=== PATIENT | female | born 1975 | race American Indian/Alaskan Native ===

== ENCOUNTER 2017-08-12 19:23 | Inpatient (IN) | payer OTHER ==
[2017-08-12 19:45] VITALS: BMI 38.0
--- NOTE | 2017-08-12 20:21 | ED PDOC ---
Arrival/HPI <Abilio Saunders - Last Filed: 08/12/17 21:53> - General Historian: Patient - History of Present Illness Time/Duration: Other (about 3 years) Symptom Onset: Gradual Symptom Course: Intermittent <Gerardo Steven - Last Filed: 08/12/17 22:55> - General Chief Complaint: Dizziness/Lightheaded Time Seen by Provider: 08/12/17 19:45 - History of Present Illness Narrative History of Present Illness (Text): 08/12/17 20:17 This is a 42 year old female with PMHx anemia and SVT complaining of paresthesias in both hands. Patient states that this has been occurring for the past 3 years. Patient has been unable to seek medical evaluation due to the care of her autistic son. 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 Patient admits to neck pain. Patient also complaining of lightheadedness and fatigue. Of note, patient's LMP was a few days prior. (Gerardo Steven) Past Medical History - Provider Review Nursing Documentation Reviewed: Yes - Infectious Disease Hx of Infectious Diseases: None - Tetanus Immunization Tetanus Immunization: Unknown - Cardiac Hx Cardiac Disorders: Yes Hx Cardiac Arrhythmia: Yes (SVT) - Pulmonary Hx Respiratory Disorders: No - Neurological Hx Neurological Disorder: No - HEENT Hx HEENT Disorder: No - Renal Hx Renal Disorder: No - Endocrine/Metabolic Hx Endocrine Disorders: No - Hematological/Oncological Hx Blood Disorders: Yes Hx Anemia: Yes - Integumentary Hx Dermatological Disorder: No - Musculoskeletal/Rheumatological Hx Musculoskeletal Disorders: No - Gastrointestinal Hx Gastrointestinal Disorders: No - Genitourinary/Gynecological Hx Genitourinary Disorders: No - Psychiatric Hx Psychophysiologic Disorder: No Hx Substance Use: No - Surgical History Hx Hysterectomy: (piece of uterus, right fallopian tube) Other/Comment: breast reduction - Anesthesia Hx Anesthesia: Yes Hx Anesthesia Reactions: No Hx Malignant Hyperthermia: No - Suicidal Assessment Feels Threatened In Home Enviroment: No <Gerardo Steven - Last Filed: 08/12/17 22:55> Family/Social History - Physician Review Nursing Documentation Reviewed: Yes Family/Social History: No Known Family HX Smoking Status: Light Smoker < 10 Cigarettes Daily Hx Alcohol Use: Yes Hx Substance Use: No Hx Substance Use Treatment: No <Gerardo Steven - Last Filed: 08/12/17 22:55> Allergies/Home Meds <LeylaAbilio eaton - Last Filed: 08/12/17 21:53> <Gerardo Steven - Last Filed: 08/12/17 22:55> Allergies/Adverse Reactions: Allergies No Known Allergies Allergy (Verified 08/12/17 19:46) Home Medications: Home Meds Medication Instructions Recorded Confirmed Folic Acid [Folic Acid] 1 tab PO DAILY 08/12/17 08/12/17 Review of Systems - Review of Systems Constitutional: Fatigue Eyes: Normal ENT: Normal Respiratory: Normal Cardiovascular: Normal Gastrointestinal: Normal Genitourinary Female: Frequency Musculoskeletal: Neck Pain Skin: Normal Neurological: Other (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 paresthesias along both hands. Lightheadedness.) Endocrine: Normal Hemo/Lymphatic: Normal Psychiatric: Normal <Gerardo Steven - Last Filed: 08/12/17 22:55> Physical Exam Vital Signs Reviewed: Yes Temperature: Afebrile Blood Pressure: Normal Pulse: Tachycardic Respiratory Rate: Normal Appearance: Positive for: Well-Appearing Pain Distress: None Mental Status: Positive for: Alert and Oriented X 3 - Systems Exam Head: Present: Atraumatic, Normocephalic Pupils: Present: PERRL Extroacular Muscles: Present: EOMI Conjunctiva: Present: Normal Mouth: Present: Moist Mucous Membranes Neck: Present: Normal Range of Motion Respiratory/Chest: Present: Clear to Auscultation, Good Air Exchange. No: Accessory Muscle Use Cardiovascular: Present: Regular Rate and Rhythm, Normal S1, S2 Abdomen: Present: Normal Bowel Sounds. No: Tenderness, Distention Upper Extremity: Present: Normal Inspection, NORMAL PULSES. No: Edema Lower Extremity: Present: Normal Inspection, NORMAL PULSES. No: Edema, CALF TENDERNESS Neurological: Present: GCS=15, CN II-XII Intact, Motor Func Grossly Intact, Other (increased sensation along right upper extremity compared to left.) Skin: Present: Warm, Dry, Normal Color. No: Rashes Psychiatric: Present: Alert, Oriented x 3 <Gerardo Steven - Last Filed: 08/12/17 22:55> Vital Signs Temp Pulse Resp BP Pulse Ox 08/12/17 22:43 84 16 126/80 100 08/12/17 20:59 86 18 118/79 100 08/12/17 19:49 98.4 F 99 H 18 120/84 100 Medical Decision Making - Lab Interpretations I have reviewed the lab results: Yes - EKG Interpretation Interpreted by ED Physician: Yes Type: 12 lead EKG <Abilio Saunders - Last Filed: 08/12/17 21:53> <Gerardo Steven - Last Filed: 08/12/17 22:55> ED Course and Treatment: Impression: Pt seen and evaluated with medical technicians. Pt, whose past medical history includes anemia and SVT, presented for bilateral hand paresthesias for the past 3 years. Also complaining of neck pain, light-headedness, and fatigue. Aware and agrees with HPI, clinical findings, plan, and management. Plan: -- Labs, blood type and screen -- EKG -- Urinalysis, urine cultures -- Reassess and disposition (Abilio Saunders) 08/12/17 20:29 CBC, CMP, Urine , UA 08/12/17 21:46 Urine negative. Due to patient's history of SVT, EKG obtained which showed NSR at rate 79. Hemoglobin 5.9 so patient consented for blood transfusion and admitted. Spoken with Dr. Rodarte at 21:45 who agreed for admission. (Gerardo Steven) - Lab Interpretations Lab Results: 08/12/17 20:30 08/12/17 20:30 Lab Results 08/12/17 21:00: Urine Color Yellow, Urine Appearance Clear, Urine pH 7.0, Ur Specific [place] 1.020, Urine Protein Trace H, Urine Glucose (UA) Negative, Urine Ketones Negative, Urine Blood Negative, Urine Nitrate Negative, Urine Bilirubin Negative, Urine Urobilinogen 1.0 H, Ur Leukocyte Esterase Trace H, Urine RBC Negative, Urine WBC 5 - 10, Ur Epithelial Cells 3 - 4, Urine Bacteria Trace 08/12/17 20:30: Sodium 138, Potassium 3.6, Chloride 105, Carbon Dioxide 25, Anion Gap 12, BUN 19, Creatinine 0.8, Est GFR ( Amer) > 60, Est GFR (Non- Af Amer) > 60, Random Glucose 87, Calcium 8.6, Total Bilirubin 0.3, AST 20, ALT 19, Alkaline Phosphatase 38, Total Protein 6.7, Albumin 3.8, Globulin 2.9, Albumin/Globulin Ratio 1.3 08/12/17 20:30: WBC 7.6 D, RBC 4.03, Hgb 5.9 L*, Hct 21.6 L, MCV 53.6 L, MCH 14.6 L, MCHC 27.3 L, RDW 20.6 H, Plt Count 145, Gran % 51.3, Lymph % (Auto) 36.2 H, [place] % (Auto) 10.4 H, Eos % (Auto) 1.3 L, Baso % (Auto) 0.8, Gran # 3.87 , Lymph # 2.7, [place] # 0.8 H, Eos # 0.1, Baso # 0.06, Neutrophils % (Manual) 54, Lymphocytes % (Manual) 41 H, Monocytes % (Manual) 3, Eosinophils % (Manual) 2, Platelet Evaluation Normal, Large Platelets Present, Hypochromasia 3+, Poikilocytosis (manual Slight, Anisocytosis (manual) 1+, Microcytosis (manual) 2 +, Tear Drop Cells Slight, Ovalocytes Slight Disposition/Present on Arrival <Abilio Saunders - Last Filed: 08/12/17 21:53> - Present on Arrival Any Indicators Present on Arrival: No History of DVT/PE: No History of Uncontrolled Diabetes: No Urinary Catheter: No History of Decub. Ulcer: No History Surgical Site Infection Following: None - Disposition Have Diagnosis and Disposition been Completed?: Yes Disposition Time: 21:45 <Gerardo Steven - Last Filed: 08/12/17 22:55> - Disposition Diagnosis: Anemia Disposition: HOSPITALIZED Patient Problems: Current Active Problems Problem Status Onset Anemia Acute Condition: GOOD
[2017-08-12 20:53] LABS: BASO # 0.06 K/mm3 (0.0-2.0); BASO % 0.8 % (0.0-3.0); EOS # 0.1 (0.0-0.7); EOS % 1.3 % (1.5-5.0); GRAN # 3.87 (1.4-6.5); GRAN % 51.3 % (50.0-68.0); LYMPH # 2.7 (1.2-3.4); LYMPH % 36.2 % (22.0-35.0); MEAN CELL VOLUME 53.6 fl (80.0-105.0); MEAN CORPUSCULAR HEMOGLOBIN 14.6 pg (25.0-35.0); MEAN CORPUSCULAR HGB CONC 27.3 g/dl (31.0-37.0); MONO # 0.8 (0.1-0.6); MONO % 10.4 % (1.0-6.0); PLATELET COUNT 145 10^3/uL (120.0-450.0); RED CELL DISTRIBUTION WIDTH 20.6 % (11.5-14.5); WHITE BLOOD COUNT 7.6 10^3/ul (4.5-11.0)
[2017-08-12 21:03] LABS: ALB/GLOB RATIO 1.3 (1.1-1.8); ALKALINE PHOSPHATASE 38 U/L (38-126); ALT/SGPT 19 U/L (7-56); AST/SGOT 20 U/L (14-36); BILIRUBIN,TOTAL 0.3 mg/dL (0.2-1.3); BLOOD UREA NITROGEN 19 mg/dL (7-21); CALCIUM 8.6 mg/dL (8.4-10.5); CARBON DIOXIDE 25 mmol/L (21-33); CHLORIDE 105 mmol/L (98-107); GFR AFRICAN-AMERICAN > 60; GLUCOSE,RANDOM 87 mg/dL (70-110); POTASSIUM 3.6 mmol/L (3.6-5.0); SODIUM 138 mmol/L (132-148); TOTAL PROTEIN 6.7 g/dL (5.8-8.3)
[2017-08-12 21:07] LABS: URINE BILIRUBIN NEGATIVE (NEGATIVE); URINE BLOOD NEGATIVE (NEGATIVE); URINE GLUCOSE (UA) NEGATIVE (NEGATIVE); URINE KETONE NEGATIVE (NEGATIVE); URINE LEUKOCYTE ESTERASE TRACE Leu/uL (NEGATIVE); URINE PROTEIN TRACE mg/dL (<30 mg/dL)
[2017-08-12 21:09] LABS: URINE APPEARANCE CLEAR (CLEAR); URINE COLOR YELLOW (YELLOW)
[2017-08-12 21:11] LABS: URINE RBC NEGATIVE /hpf (0-2)
[2017-08-12 21:12] LABS: URINE BACTERIA TRACE (NEG)
[2017-08-12 21:14] LABS: HEMATOCRIT 21.6 % (36.0-48.0)
[2017-08-12 21:32] LABS: ANISOCYTOSIS 1+; EOSINOPHIL 2 % (0.0-3.0); HYPOCHROMIA 3+; LARGE PLATELETS PRESENT; MICROCYTOSIS 2+; NEUTROPHIL 54 % (50.0-70.0); OVALOCYTES SLIGHT; PLATELET ESTIMATE NORMAL (NORMAL); POIKILOCYTOSIS SLIGHT; TEAR DROP CELLS SLIGHT
[2017-08-13 00:50] LABS: IRON 14 ug/dL (45-180)
--- NOTE | 2017-08-13 01:47 | CP.PCM.PN ---
Subjective - Date & Time of Evaluation Date of Evaluation: 08/12/17 Time of Evaluation: 22:00 - Subjective Subjective: 42 F with h/o Fe def anemia, sp prbc in April at [facility] [place], non compliant with use of FeSO4 due to constipation and hemorrhoids, has periods 7 days heavy/month regular, not worked up for the cause, denies elier blood or melena. Patient came for symptoms of weakness, cramps in the whole body related with activity. Patient also c/o intermittent sudden difficulty in swallowing of food liquid or solids for brief duration. H/o SVT about 3 times last time went to [facility] [place] was found to be anemic. * Fe def anemia loss most likely from menorrhagia unlikely gi Body cramps transient related with activity without neurologic abnormality likely form symptomatic anemia, but patient request neurology eval as not convinced with clinical assessment Intermittent Odynopahgia Plan PRBC, iron studies prior Uterine USG Out patient referral for endromertial eval/biopsy and probable use of hormonal therapy if usg negative Neurology consult See orders for detail. Out patient GI eval if odynophagia persist Patient has PMD See orders for detail Objective - Vital Signs/Intake and Output Vital Signs (last 24 hours): Temp Pulse Resp BP Pulse Ox 98.1 F 85 18 121/70 100 08/13/17 01:11 08/13/17 01:11 08/13/17 01:11 08/13/17 01:11 08/12/17 22:43 Intake and Output: 08/12/17 08/13/17 18:59 06:59 Intake Total 10 Balance 10 - Medications Medications: Current Medications Folic Acid (Folic Acid) 1 mg PO DAILY PAWEL Nicotine (Nicoderm Cq) 1 patch TD DAILY PAWEL Pantoprazole Sodium (Protonix Ec Tab) 40 mg PO 0600 PAWEL Polyethylene Glycol (Miralax) 17 gm PO DAILY PAWEL
--- NOTE | 2017-08-13 04:23 | CP.PCM.HP ---
<JAY DANIELSON - Last Filed: 08/13/17 03:51> History of Present Illness - History of Present Illness History of Present Illness: Jay Chris DO PGY1 - Internal Medicine H&P CC: Hand numbness and weakness HPI: 42yo F with PMH of anemia, SVT, LIANNA, and PTSD presented to ER complaining of numbness and weakness in both hands, in addition to generalized weakness, fatigue, diffuse muscle cramps and weakness when she exerts herself. These symptoms are only associated with activity and always resolve spontaneously. She is also complaining of occasional dysphagia to solids and liquids. Patient states she has had these problems for several years, but has been getting progressively worse in recent months. Patient is extremely concerned about neurological disorders causing these problems and insists on neurological workup including MRI, reporting a history of MS, lupus, and RA in her cousins. Regarding her anemia, patient reports heavy menstrual bleeding. Her periods are regular, every 30 days, lasting 7 days, with heavy, debilitating bleeding causing exhaustion on two of the seven days, requiring a tampon and two pads at the same time, and changing tampon every 30 minutes to an hour. She reports having had this problem for many years. She denies hematochezia, melena, hematuria, hemoptysis, hematemesis. She reports that she was previously prescribed iron supplementation, but does not take it consistently because it causes her to be constipated, and she has had colace in the past which did not help with that problem. She also reports prior episodes of SVT associated with anemia, for which she was prescribed metoprolol, which she also does not take because it makes her sleepy. Regarding her anxiety and PTSD, patient reports worsening anxiety in recent two months, ever since her young son came back to live with her after being discharged from "residence" where he was apparently being taken care of on an inpatient basis for autism, ADHD, OCD. She does see a psychiatrist and therapist , but has not seen them recently because she is preoccupied with her son. She has also been noncompliant with the medications prescribed for anxiety because they cause "mental fog". PMH: Anemia, menorrhagia, SVT, LIANNA, PTSD PSH: Breast reduction, right salpingectomy for ectopic Meds: Folate. Also Klonopin which she has run out of, and iron supp and lamotrigine which she has been noncompliant with FHx: MS, Lupus, RA in cousins, DM, esophageal CA, and colon CA in parents Soc: Tob 1/4 PPD, EtOH 1-2 drinks weekly, Illicits denies All: NKDA ROS: Constitutional: +Generalized weakness, fatigue pt denies fever, chills ENT: +Dysphagia, b/l tinnitus pt denies otalgia, hearing deficit, rhinorrhea Eyes: pt denies sudden loss of vision, diplopia, blurred vision MSK: +b/l UE and LE intermittent cramping pt denies muscle stiffness, joint pain Cardio: pt denies sob, heart murmur, CP Pulm: pt denies cough, hemoptysis, wheeze GI: +Suprapubic abdominal pain, constipation pt denies loss of appetite, melena , n/v/d : +"Discomfort" on urination, menorrhagia pt denies burning on urination, urinary frequency, hematuria, urinary urgency Neuro: +intermittent b/l UE and LE paresthesias, numbness, tingling, weakness pt denies paresis, dizziness, moe Derm: pt denies skin changes, lesions, nail changes Endo: pt denies intolerance to heat/cold, diaphoresis, night sweats, polydipsia Psych: +Anxiety pt denies depression, mood changes, SI/HI Present on Admission - Present on Admission Any Indicators Present on Admission: No Past Patient History - Infectious Disease Hx of Infectious Diseases: None - Tetanus Immunizations Tetanus Immunization: Unknown - Past Social History Smoking Status: Light Smoker < 10 Cigarettes Daily - CARDIAC Hx Cardiac Disorders: Yes Hx Cardia Arrhythmia: Yes (SVT) - PULMONARY Hx Respiratory Disorders: No - NEUROLOGICAL Hx Neurological Disorder: No - HEENT Hx HEENT Problems: No - RENAL Hx Chronic Kidney Disease: No - ENDOCRINE/METABOLIC Hx Endocrine Disorders: No Hx Diabetes Mellitus Type 2: (family Hx: Maternal side) - HEMATOLOGICAL/ONCOLOGICAL Hx Blood Disorders: Yes Hx Anemia: Yes (with blood transfusions) - INTEGUMENTARY Hx Dermatological Problems: No - MUSCULOSKELETAL/RHEUMATOLOGICAL Hx Musculoskeletal Disorders: No Hx Falls: No Hx Unsteady Gait: No - GASTROINTESTINAL Hx Gastrointestinal Disorders: No - GENITOURINARY/GYNECOLOGICAL Hx Genitourinary Disorders: No - PSYCHIATRIC Hx Psychophysiologic Disorder: Yes Hx Anxiety: Yes Hx Substance Use: No - SURGICAL HISTORY Hx Hysterectomy: (piece of uterus, right fallopian tube) Other/Comment: breast reduction. 2 C-sections - ANESTHESIA Hx Anesthesia: Yes Hx Anesthesia Reactions: No Hx Malignant Hyperthermia: No Meds Allergies/Adverse Reactions: Allergies Allergy/AdvReac Type Severity Reaction Status Date / Time No Known Allergies Allergy Verified 08/12/17 19:46 Physical Exam - Constitutional Appears: Non-toxic, No Acute Distress - Head Exam Head Exam: ATRAUMATIC, NORMOCEPHALIC - Eye Exam Eye Exam: EOMI, Normal appearance, PERRL Additional comments: Conjuntival pallor - ENT Exam ENT Exam: Mucous Membranes Moist - Neck Exam Neck exam: Negative for: Lymphadenopathy, Meningismus, Thyromegaly - Respiratory Exam Respiratory Exam: Clear to Auscultation Bilateral. absent: Rales, Rhonchi, Wheezes - Cardiovascular Exam Cardiovascular Exam: RRR, +S1, +S2. absent: Tachycardia, Diastolic murmur, Systolic Murmur - GI/Abdominal Exam GI & Abdominal Exam: Guarding (voluntary), Normal Bowel Sounds, Soft, Tenderness (mild, suprapubic). absent: Firm, Rebound, Rigid - Extremities Exam Extremities exam: Positive for: normal capillary refill. Negative for: calf tenderness, pedal edema - Neurological Exam Neurological exam: Alert, CN II-XII Intact, Normal Gait, Oriented x3, Reflexes Normal Additional comments: 5/5 strength b/l UE and LE 2/4 DTR throughout - Psychiatric Exam Psychiatric exam: Normal Affect, Normal Mood - Skin Skin Exam: Dry, Intact, Normal Color Results - Vital Signs Recent Vital Signs: Last Vital Signs Temp 98.3 F 08/13/17 03:43 Pulse 75 08/13/17 03:43 Resp 18 08/13/17 03:43 BP 116/76 08/13/17 03:43 Pulse Ox 100 08/12/17 22:43 - Labs Result Diagrams: 08/12/17 20:30 08/12/17 20:30 Labs: Laboratory Results - last 24 hr 08/12/17 08/12/17 22:00 22:52 Blood Type A POSITIVE Blood Type Confirm A POSITIVE Antibody Screen Negative Crossmatch See Detail BBK History Checked No verified bt Assessment & Plan - Assessment and Plan (Free Text) Assessment: 42yo F with PMH of anemia, SVT, menorrhagia, LIANNA and PTSD presents for parasthesias and weakness, noted to be severely anemic, admitted for transfusion , monitoring, and further workup. Plan: 1. Parasthesias and weakness - currently asymptomatic - Patient reports transient parasthesias and weakness in b/l UE and LE, associated with exertion; occurs most while she is at work - No focal deficits noted on neurological exam, hold off on MRI at this time - Likely 2/2 symptomatic anemia, less likely polyneuropathy vs MS - Ordered 2U PRBC to treat symptomatic anemia - Considering family hx of MS and multiple autoimmune disorders, requested Neuro consult to r/o neurological etiology 2. Symptomatic anemia - Hgb 5.9 on CBC in ER, microcytic. - Hemodynamically stable at this time, no current active bleeding - Iron studies ordered, FOBT ordered; most likely iron deficiency anemia 2/2 menorrhagia; further workup if iron studies normal - Hemoglobin electropheresis ordered to r/o thalessemia - Type and cross ordered with 2U PRBC transfusion ordered - Transvaginal and pelvic US ordered to evaluate for fibroids - Fall precautions - Recheck CBC in AM, after transfusions 3. Dysuria - Patient reports "discomfort" with urination, but no urgency, frequency, or burning. No F/C. - UA in ER significant for trace LE, but no nitrites; also epithelial cells present, so likely not clean catch - UCx ordered, pending - Hold abx at this time, as she is currently afebrile with no leukocytosis, pending UCx results 4. Constipation - Patient reports chronic constipation, worsened by iron supplements. Has tried colace in the past, to no avail - Start daily miralax 5. h/o SVT - EKG in ER shows NSR with no tachycardia - Continue to monitor 6. h/o LIANNA and PTSD - Patient noncompliant with medications 7. Intermittent dysphagia - currently asymptomatic - Likely esophageal dysmotility associated with LIANNA - Consider GI consult for EGD if she continues to be symptomatic GI/DVT Ppx Patient seen, discussed, and reviewed with attending <Kam Rodarte - Last Filed: 08/13/17 06:53> Results - Vital Signs Recent Vital Signs: Last Vital Signs Temp 98 F 08/13/17 04:47 Pulse 68 08/13/17 06:00 Resp 20 08/13/17 04:47 BP 121/77 08/13/17 04:47 Pulse Ox 100 08/12/17 22:43 - Labs Result Diagrams: 08/12/17 20:30 08/12/17 20:30 Labs: Laboratory Results - last 24 hr 08/12/17 08/12/17 22:00 22:52 Blood Type A POSITIVE Blood Type Confirm A POSITIVE Antibody Screen Negative Crossmatch See Detail BBK History Checked No verified bt Attending/Attestation - Attestation I have personally seen and examined this patient.: Yes I have fully participated in the care of the patient.: Yes I have reviewed all pertinent clinical information: Yes Notes (Text): 42 F with h/o Fe def anemia, sp prbc in April at [facility] [place], non compliant with use of FeSO4 due to constipation and hemorrhoids, has periods 7 days heavy/month regular, not worked up for the cause, denies elier blood or melena. Patient came for symptoms of weakness, cramps in the whole body related with activity. Patient also c/o intermittent sudden difficulty in swallowing of food liquid or solids for brief duration. H/o SVT about 3 times last time went to [facility] [place] was found to be anemic. Fe def anemia loss most likely from menorrhagia unlikely gi Body cramps transient related with activity without neurologic abnormality likely form symptomatic anemia, but patient request neurology eval as not convinced with clinical assessment Intermittent Odynopahgia Plan PRBC, iron studies prior Uterine USG Out patient referral to [facility] for endromertial eval/biopsy and probable use of hormonal therapy if usg negative Neurology consult See orders for detail. Out patient GI eval if odynophagia persist Patient has PMD See orders for detail
[2017-08-13] MEDS: Pantoprazole 40 mg EC Tab PO SCH (05:18)
[2017-08-13 07:59] LABS: BASO # 0.04 K/mm3 (0.0-2.0); BASO % 0.6 % (0.0-3.0); EOS # 0.1 (0.0-0.7); EOS % 2.1 % (1.5-5.0); GRAN # 3.72 (1.4-6.5); GRAN % 54.7 % (50.0-68.0); LYMPH # 2.1 (1.2-3.4); LYMPH % 31.1 % (22.0-35.0); MEAN CELL VOLUME 58.6 fl (80.0-105.0); MEAN CORPUSCULAR HEMOGLOBIN 17.4 pg (25.0-35.0); MEAN CORPUSCULAR HGB CONC 29.6 g/dl (31.0-37.0); MONO # 0.8 (0.1-0.6); MONO % 11.5 % (1.0-6.0); PLATELET COUNT 133 10^3/uL (120.0-450.0); RED CELL DISTRIBUTION WIDTH 27.6 % (11.5-14.5); WHITE BLOOD COUNT 6.8 10^3/ul (4.5-11.0)
[2017-08-13 08:16] LABS: ALB/GLOB RATIO 1.2 (1.1-1.8); ALKALINE PHOSPHATASE 39 U/L (38-126); ALT/SGPT 24 U/L (7-56); AST/SGOT 19 U/L (14-36); BILIRUBIN,TOTAL 1.3 mg/dL (0.2-1.3); BLOOD UREA NITROGEN 13 mg/dL (7-21); CALCIUM 8.4 mg/dL (8.4-10.5); CARBON DIOXIDE 23 mmol/L (21-33); CHLORIDE 109 mmol/L (98-107); GFR AFRICAN-AMERICAN > 60; GLUCOSE,RANDOM 78 mg/dL (70-110); PHOSPHOROUS 4.2 mg/dL (2.5-4.5); SODIUM 140 mmol/L (132-148); TOTAL PROTEIN 6.7 g/dL (5.8-8.3)
[2017-08-13] MEDS: POLYETHYLENE GLYCOL 3350 17 GM/Dose PACKET PO SCH (09:48)
--- NOTE | 2017-08-13 11:09 | CARD ---
APPROVED REPORT EKG Measurement Heart [id number] <Conclusion> Normal sinus rhythm Possible Left atrial enlargement Low voltage QRS
--- NOTE | 2017-08-13 12:50 | US ---
HISTORY: menorrhagia, r/o fibroids COMPARISON: None available. TECHNIQUE: Transabdominal and transvaginal pelvic ultrasonography were performed with longitudinal and transverse images submitted. FINDINGS: UTERUS: Measures 10.6 x 6.7 x 7.2 cm. Uterus is anteverted and appears enlarged with multiple fibroids identified. The anterior fundal final appears submucous measuring 2.5 x 2.9 by 2.8 cm, right-sided. A sub serosal fibroid is identified at the high anterior fundus measuring 3.0 x 2.2 x 3.4 cm. A 3rd myoma is identified at the left side of the a fundus likely submucous in location measuring 2.4 x 2.9 x 2.7 cm. Finally, at the low lower uterine segment posteriorly, there is a sub serosal myoma measuring 2.1 x 2.1 x 2.0 cm. ENDOMETRIUM: Measures 12.2 mm in diameter. Unremarkable. CERVIX: A few tiny nabothian cysts identified with the cervix otherwise unremarkable. RIGHT OVARY: Measures 3.6 x 2.0 x 4.3 cm. No solid mass. Normal flow. Multiple full small follicles identified in the right ovary with a 2.0 x 1.6 x 1.1 cm mildly complex cyst identified within internal septation. LEFT OVARY: Measures 3.4 x 2.0 x 3.1 cm. No solid mass. Normal flow. The left ovary was seen only in the transabdominal portion of the exam, not clearly seen on the transvaginal component. FREE FLUID: No significant free fluid noted. OTHER FINDINGS: None. IMPRESSION: An enlarged uterus is appreciated with at least 4 defined uterine myomata scattered anteriorly and posteriorly, some which are submucous. A 2.0 cm complex cyst is seen at the right ovary with the left ovary nonfocal but identified only transabdominally.
[2017-08-13 13:20] LABS: RETIC% 0.66 % (0.5-1.5)
[2017-08-13 14:59] LABS: IRON 116 ug/dL (45-180)
[2017-08-13 17:15] LABS: FOLATE 4.7 ng/mL
--- NOTE | 2017-08-13 20:16 | CP.PCM.CON ---
<Bhavin Noble - Last Filed: 08/13/17 21:46> History of Present Illness - History of Present Illness History of Present Illness: Neuro Consult Note for Dr. Brizuela Service Consulted for: worsening spasms, FHx of MS This is a 42 yo AA F with PMH of Chronic anemia, menorrhagia, SVT, LIANNA, PTSD, and intermittent medication non-compliance who presented to [facility] with complaint of numbness and weakness in bilateral hands, generalized weakness/fatigue, diffuse muscle cramps, and worsening weakness when she exerts herself. Reports progressive worsening of these symptoms for 2-3 months. Was found to have an anemia of 5.9 in the ED, so patient was transfused with 2 units pRBCs, and her Hgb improved to 8.0. When told by primary team that many of her symptoms were likely due to or worsened by her anemia, patient became acutely upset and agitated, insisting that the anemia can't be the only cause, as she symptoms keep periodically worsening event when she is not experiencing menorrhagia. Admits to intermittent non-compliance with her home iron regimen because of associated constipation not relieved with her home Colace. Also reports increased anxiety and agitation due to issues with her autistic son at home and because she ran out of her home Klonopin and has not had a chance to see her PMD for a refill. Patient reports the upper extremity weakness is worse with exertion, and is not bilateral but intermittently changes between hands. Initially denied changes in vision, but on repeat exam with attending present, reported blurred and sometimes double vision intermittently. Denies nausea/ emesis, chest pain, shortness of breath, fevers/chills, syncope/near-syncope, diarrhea/constipation, focal paresis, or loss of control of bowels/bladder. Admits to dizziness with sensation of room spinning intermittently, not specifically worsened with moving from sitting to standing, and not associated with nausea or emesis. All other ROS in 12-point system review negative. PMH: Anemia, menorrhagia, SVT, LIANNA, PTSD PSH: Breast reduction, right salpingectomy for ectopic FHx: MS (in a cousin, no MS in any 1st degree relatives), Lupus, RA (mother), DM , esophageal CA, and colon CA in parents Soc: Tob 1/4 PPD (~15 yrs), EtOH 1-2 drinks weekly, Denies illicits/IVDA PMD: Dr. Torres Review of Systems - Review of Systems All systems: reviewed and no additional remarkable complaints except (as per HPI ) Past Patient History - Infectious Disease Hx of Infectious Diseases: None - Tetanus Immunizations Tetanus Immunization: Unknown - Past Social History Smoking Status: Light Smoker < 10 Cigarettes Daily - CARDIAC Hx Cardiac Disorders: Yes Hx Cardia Arrhythmia: Yes (SVT) - PULMONARY Hx Respiratory Disorders: No - NEUROLOGICAL Hx Neurological Disorder: No - HEENT Hx HEENT Problems: No - RENAL Hx Chronic Kidney Disease: No - ENDOCRINE/METABOLIC Hx Endocrine Disorders: No Hx Diabetes Mellitus Type 2: (family Hx: Maternal side) - HEMATOLOGICAL/ONCOLOGICAL Hx Blood Disorders: Yes Hx Anemia: Yes (with blood transfusions) - INTEGUMENTARY Hx Dermatological Problems: No - MUSCULOSKELETAL/RHEUMATOLOGICAL Hx Musculoskeletal Disorders: No Hx Falls: No Hx Unsteady Gait: No - GASTROINTESTINAL Hx Gastrointestinal Disorders: No - GENITOURINARY/GYNECOLOGICAL Hx Genitourinary Disorders: No - PSYCHIATRIC Hx Psychophysiologic Disorder: Yes Hx Anxiety: Yes Hx Substance Use: No - SURGICAL HISTORY Hx Hysterectomy: (piece of uterus, right fallopian tube) Other/Comment: breast reduction. 2 C-sections - ANESTHESIA Hx Anesthesia: Yes Hx Anesthesia Reactions: No Hx Malignant Hyperthermia: No Meds Allergies/Adverse Reactions: Allergies Allergy/AdvReac Type Severity Reaction Status Date / Time No Known Allergies Allergy Verified 08/12/17 19:46 - Medications Medications: Current Medications Folic Acid (Folic Acid) 1 mg PO DAILY [facility] Last Admin: 08/13/17 09:48 Dose: 1 mg Nicotine (Nicoderm Cq) 1 patch TD DAILY [facility] Last Admin: 08/13/17 09:48 Dose: 1 patch Pantoprazole Sodium (Protonix Ec Tab) 40 mg PO 0600 [facility] Last Admin: 08/13/17 05:18 Dose: 40 mg Polyethylene Glycol (Miralax) 17 gm PO DAILY [facility] Last Admin: 08/13/17 09:48 Dose: 17 gm Physical Exam - Constitutional Appears: Well, Non-toxic, No Acute Distress, Other (anxious) - Head Exam Head Exam: ATRAUMATIC, NORMAL INSPECTION, NORMOCEPHALIC Additional comments: Riverside-halpike testing negative - Eye Exam Eye Exam: EOMI, Normal appearance, PERRL. absent: Conjunctival injection, Nystagmus, Scleral icterus Pupil Exam: NORMAL ACCOMODATION, PERRL. absent: Fixed, Irregular, Unequal - ENT Exam ENT Exam: Mucous Membranes Moist. absent: Mucous Membranes Dry - Neck Exam Neck exam: Positive for: Full Rom, Normal Inspection, Tenderness (mild tenderness along posterior aspect of neck, some muscular tension). Negative for : Lymphadenopathy, Thyromegaly - Respiratory Exam Respiratory Exam: Clear to Auscultation Bilateral, NORMAL BREATHING PATTERN. absent: Accessory Muscle Use, Chest Wall Tenderness, Decreased Breath Sounds, Rales, Rhonchi, Wheezes - Cardiovascular Exam Cardiovascular Exam: REGULAR RHYTHM, RRR, +S1, +S2. absent: Bradycardia, Tachycardia, Clicks, Irregular Rhythm, JVD, +S4 - GI/Abdominal Exam GI & Abdominal Exam: Normal Bowel Sounds, Soft. absent: Diminished Bowel Sounds , Distended, Firm, Hyperactive Bowel Sounds, Hypoactive Bowel Sounds, Rigid, Tenderness - Extremities Exam Extremities exam: Positive for: full ROM, normal capillary refill, normal inspection, pedal pulses present. 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 Sensory and motor grossly intact and equal bilaterally - Psychiatric Exam Psychiatric exam: Agitated, Anxious - Skin Skin Exam: Dry, Intact, Normal Color, Warm Results - Vital Signs Recent Vital Signs: Last Vital Signs Temp 97.7 F 08/13/17 08:27 Pulse 76 08/13/17 18:00 Resp 18 08/13/17 08:27 BP 116/72 08/13/17 08:27 Pulse Ox 99 08/13/17 08:27 - Labs Result Diagrams: 08/13/17 08:00 08/13/17 08:00 Labs: Laboratory Results - last 24 hr 08/12/17 08/12/17 08/13/17 22:00 22:52 08:00 WBC 6.8 RBC 4.61 Hgb 8.0 L D Hct 27.0 L MCV 58.6 L D MCH 17.4 L MCHC 29.6 L RDW 27.6 H Plt Count 133 Gran % 54.7 Lymph % (Auto) 31.1 Ashley % (Auto) 11.5 H Eos % (Auto) 2.1 Baso % (Auto) 0.6 Gran # 3.72 Lymph # 2.1 Ashley # 0.8 H Eos # 0.1 Baso # 0.04 Retic Count Sodium Potassium Chloride Carbon Dioxide Anion Gap BUN Creatinine Est GFR ( Amer) Est GFR (Non-Af Amer) Random Glucose Calcium Phosphorus Magnesium Iron TIBC % Saturation Total Bilirubin AST ALT Alkaline Phosphatase Total Protein Albumin Globulin Albumin/Globulin Ratio Vitamin B12 Folate Blood Type A POSITIVE Blood Type Confirm A POSITIVE Antibody Screen Negative Crossmatch See Detail BBK History Checked No verified bt 08/13/17 08/13/17 08/13/17 08:00 11:56 11:56 WBC RBC Hgb Hct MCV MCH MCHC RDW Plt Count Gran % Lymph % (Auto) Ashley % (Auto) Eos % (Auto) Baso % (Auto) Gran # Lymph # Ashley # Eos # Baso # Retic Count 0.66 Sodium 140 Potassium 4.0 Chloride 109 H Carbon Dioxide 23 Anion Gap 12 BUN 13 Creatinine 0.6 Est GFR ( Amer) > 60 Est GFR (Non-Af Amer) > 60 Random Glucose 78 Calcium 8.4 Phosphorus 4.2 Magnesium 2.0 Iron TIBC % Saturation Total Bilirubin 1.3 AST 19 ALT 24 Alkaline Phosphatase 39 Total Protein 6.7 Albumin 3.7 Globulin 3.0 Albumin/Globulin Ratio 1.2 Vitamin B12 239 Folate 4.7 Blood Type Blood Type Confirm Antibody Screen Crossmatch BBK History Checked 08/13/17 14:25 WBC RBC Hgb Hct MCV MCH MCHC RDW Plt Count Gran % Lymph % (Auto) Ashley % (Auto) Eos % (Auto) Baso % (Auto) Gran # Lymph # Ashley # Eos # Baso # Retic Count Sodium Potassium Chloride Carbon Dioxide Anion Gap BUN Creatinine Est GFR ( Amer) Est GFR (Non-Af Amer) Random Glucose Calcium Phosphorus Magnesium Iron 116 TIBC 410 % Saturation 28 Total Bilirubin AST ALT Alkaline Phosphatase Total Protein Albumin Globulin Albumin/Globulin Ratio Vitamin B12 Folate Blood Type Blood Type Confirm Antibody Screen Crossmatch BBK History Checked Assessment & Plan - Assessment and Plan (Free Text) Assessment: This is a 42 yo AA F with PMH of Chronic anemia, menorrhagia, SVT, LIANNA, PTSD, and intermittent medication non-compliance who presented to [facility] with complaint of numbness and weakness in bilateral hands, generalized weakness/fatigue, diffuse muscle cramps, and worsening weakness when she exerts herself. Reports progressive worsening of these symptoms for 2-3 months. Is acutely worried about MS due to family hx and belief her symptoms cannot be from anemia alone. There is definitely a component of her weakness that is due to her anemia, which is due to underlying menorrhagia and exacerbated by non-compliance with her home iron regimen. Likely also an anxiety component, as patient has significant stressors in her life currently (Autistic son), and has been off of her anxiety regimen due to running out. Her spasms are more musculoskeletal in nature, exacerbated by her anxiety. Will obtain an MRI of her Brain, cervical, and thoracic spines to assess for demyelinating disease. Pt would also benefit from a Psych consult. Plan: 1) MRI of brain/cervical spine/Thoracic spine with contrast, f/u 2) Gabapentin 300mg PO qHS 3) Medical management as per primary team 4) Rec Psych consult for anxiety Patient seen, reviewed, and discussed with attending, Dr. Brizuela. <Steven Brizuela - Last Filed: 08/14/17 12:56> Meds - Medications Medications: Current Medications Dexamethasone (Decadron Inj) 4 mg IVP Q6 [facility] Last Admin: 08/14/17 11:45 Dose: 4 mg Folic Acid (Folic Acid) 1 mg PO DAILY [facility] Last Admin: 08/14/17 09:34 Dose: 1 mg Gabapentin (Neurontin) 300 mg PO HS [facility] PRN Reason: Protocol Last Admin: 08/13/17 21:45 Dose: 300 mg Nicotine (Nicoderm Cq) 1 patch TD DAILY [facility] Last Admin: 08/14/17 09:34 Dose: 1 patch Pantoprazole Sodium (Protonix Ec Tab) 40 mg PO 0600 [facility] Last Admin: 08/14/17 06:14 Dose: 40 mg Polyethylene Glycol (Miralax) 17 gm PO DAILY [facility] Last Admin: 08/14/17 09:34 Dose: 17 gm Results - Vital Signs Recent Vital Signs: Last Vital Signs Temp 99 F 08/14/17 08:00 Pulse 68 08/14/17 10:00 Resp 20 08/14/17 08:00 BP 127/85 08/14/17 08:00 Pulse Ox 100 08/14/17 08:00 - Labs Result Diagrams: 08/14/17 08:35 08/14/17 08:35 Labs: Laboratory Results - last 24 hr 08/13/17 08/13/17 08/13/17 11:56 11:56 14:25 WBC RBC Hgb Hct MCV MCH MCHC RDW Plt Count Gran % Lymph % (Auto) Ashley % (Auto) Eos % (Auto) Baso % (Auto) Gran # Lymph # Ashley # Eos # Baso # Retic Count 0.66 Sodium Potassium Chloride Carbon Dioxide Anion Gap BUN Creatinine Est GFR ( Amer) Est GFR (Non-Af Amer) Random Glucose Calcium Iron 116 TIBC 410 % Saturation 28 Total Bilirubin AST ALT Alkaline Phosphatase Total Protein Albumin Globulin Albumin/Globulin Ratio Vitamin B12 239 Folate 4.7 08/14/17 08/14/17 08:35 08:35 WBC 7.5 RBC 4.96 Hgb 8.4 L Hct 28.8 L MCV 58.1 L MCH 16.9 L MCHC 29.2 L RDW 27.0 H Plt Count 114 L Gran % 61.7 Lymph % (Auto) 23.6 Ashley % (Auto) 12.1 H Eos % (Auto) 1.9 Baso % (Auto) 0.7 Gran # 4.61 Lymph # 1.8 Ashley # 0.9 H Eos # 0.1 Baso # 0.05 Retic Count Sodium 140 Potassium 4.0 Chloride 107 Carbon Dioxide 26 Anion Gap 11 BUN 9 Creatinine 0.6 Est GFR ( Amer) > 60 Est GFR (Non-Af Amer) > 60 Random Glucose 74 Calcium 8.8 Iron TIBC % Saturation Total Bilirubin 0.7 AST 16 ALT 27 Alkaline Phosphatase 39 Total Protein 6.6 Albumin 3.6 Globulin 3.0 Albumin/Globulin Ratio 1.2 Vitamin B12 Folate Attending/Attestation - Attestation I have personally seen and examined this patient.: Yes I have fully participated in the care of the patient.: Yes I have reviewed all pertinent clinical information: Yes
--- NOTE | 2017-08-13 22:06 | MRI ---
EXAM: MR Head Without Intravenous Contrast EXAM DATE/TIME: 08/13/2017 6:55 PM CLINICAL HISTORY: The patient age is 42 years old and is female; Signs and symptoms; Weakness, extremity; Bilateral; Patient HX: Bilateral arm and leg numbness. ? M. S. No contrast was done . patient in too much pain. Post contrast for tomorrow if necessary. José pearson; Additional info: Assess for demyelinating disease Facility exam id and description: Mri br s brain without contrast TECHNIQUE: Magnetic resonance images of the head/brain without intravenous contrast in multiple planes. COMPARISON: No relevant prior studies available. FINDINGS: Brain: There is no restricted diffusion within the brain to suggest acute ischemic change. No cerebral edema. There is no significant white matter disease. There is a tiny focus of magnetic susceptibility within the cerebellar vermis inferiorly, likely due to a vessel when correlated with the T2-weighted sequence. Ventricles: No ventriculomegaly. Bones/joints: No acute abnormality. Sinuses: There is minimal mucosal thickening of a left anterior ethmoid air cell. No air-fluid levels within the paranasal sinuses. Mastoid air cells: No mastoid effusion. Orbits: No acute abnormality, as visualized. There is a limited evaluation of the optic nerves. Sella: Within the posterior aspect of the pituitary gland, there is a small hypointense FLAIR lesion measuring 3 mm, suggestive of a pituitary cyst or microadenoma. An additional tiny hypointense FLAIR lesion is visualized more anteriorly within the pituitary gland. IMPRESSION: 1. There is no acute intracranial abnormality. 2. Within the posterior aspect of the pituitary gland, there is a small hypointense FLAIR lesion measuring 3 mm, suggestive of a pituitary cyst or microadenoma. An additional tiny hypointense FLAIR lesion is visualized more anteriorly within the pituitary gland. Clinical correlation and pituitary MRI sequences with/without contrast are recommended. 3. Incidental/non-acute findings are described above.
--- NOTE | 2017-08-13 22:19 | MRI ---
EXAM: MR Cervical Spine Without Intravenous Contrast EXAM DATE/TIME: 08/13/2017 6:55 PM CLINICAL HISTORY: The patient age is 42 years old and is female; Signs and symptoms; Numbness; Patient HX: Bilateral arm and leg numbness. ? M. S. No contrast was done . patient in too much pain. Post contrast for tomorrow if necessary. José pearson; Additional info: Assess for demyelinating disease Facility exam id and description: Mri spcs spinal canal cervical w/o cont TECHNIQUE: Magnetic resonance images of the cervical spine without intravenous contrast in multiple planes. COMPARISON: No relevant prior studies available. FINDINGS: Artifacts: There is motion artifact on this study. Vertebrae: There is reversal of the lordotic curvature of the cervical spine. The cervical vertebral bodies are normal in height, without abnormal subluxation. Mild degenerative disc disease is noted diffusely within the cervical spine, with a decrease in the T2 signal intensity of the discs as well as disc bulging. Spinal cord: See below. Soft tissues: No significant prevertebral soft tissue swelling. DISCS/SPINAL CANAL/NEURAL FORAMINA: C2-C3: There is no significant narrowing of the thecal sac or neural foramina. C3-C4: There is a small right central to paracentral disc protrusion causing mild narrowing of the ventral thecal sac. Mild/moderate left neural foramina is identified. C4-C5: There is a central disc herniation causing moderate compression of the cervical spinal cord. There is mild posterior deviation of the cord as well. There is subtle increased T2 signal intensity within the cord at this level, suggestive of compressive myelopathy. There is no significant neural foraminal narrowing. C5-C6: There is minimal narrowing of the thecal sac. The neural foramina are patent. C6-C7: There is minimal disc bulging, without thecal sac compression. The neural foramina are patent. C7-T1: There is no significant narrowing of the thecal sac. Mild hypertrophic changes are identified within the left neural foramen, without compression of the exiting nerve root. Other findings: There is no evidence for a Chiari malformation. IMPRESSION: 1. Degenerative changes are identified diffusely within the cervical spine, as described above. 2. At C4-5, there is a central disc herniation causing moderate compression of the cervical spinal cord. There is mild posterior deviation of the cord as well. There is subtle increased T2 signal intensity within the cord at this level, suggestive of compressive myelopathy. 3. At C3-4, there is a small right central to paracentral disc protrusion causing mild narrowing of the ventral thecal sac. 4. Minimal narrowing of the thecal sac is visualized at C5-6. 5. Mild to moderate left neural foraminal narrowing is visualized at C3-4. 6. There is reversal of the lordotic curvature of the cervical spine.
--- NOTE | 2017-08-13 22:27 | MRI ---
EXAM: MR Thoracic Spine Without Intravenous Contrast EXAM DATE/TIME: 08/13/2017 6:55 PM CLINICAL HISTORY: The patient age is 42 years old and is female; Signs and symptoms; Numbness; Patient HX: Bilateral arm and leg numbness. ? M. S. No contrast was done . patient in too much pain. Post contrast for tomorrow if necessary. José pearson; Additional info: Assess for demyelinating disease Facility exam id and description: Mri spts spinal canal thoracic w/o cont TECHNIQUE: Magnetic resonance images of the thoracic spine without intravenous contrast in multiple planes. COMPARISON: No relevant prior studies available. FINDINGS: Vertebrae: For discussion of findings within the cervical spine, refer to the MRI cervical spine from the same day. The thoracic vertebral bodies are normal in height, without abnormal subluxation. There is no acute marrow edema. Discs/spinal canal/neural foramina: There is no posterior disc herniation, thecal sac compression, or significant neural foraminal narrowing at any thoracic level. Minimal disc bulging is noted at T5-6. There is a degenerative decrease in the T2 signal intensity at the T6-7 disc. Spinal cord: The thoracic spinal cord is normal in signal intensity, without cord edema or intramedullary lesions. Lungs: MRI is limited for evaluation of the lungs. Thyroid: The left thyroid gland is prominent in size. IMPRESSION: 1. The thoracic spinal cord is normal in signal intensity, without cord edema or intramedullary lesions. 2. There is no posterior disc herniation, thecal sac compression, or significant neural foraminal narrowing at any thoracic level. Mild degenerative changes are identified within the mid thoracic spine, as described above. 3. The left thyroid gland is prominent in size. Clinical correlation and nonemergent ultrasonography are recommended.
[2017-08-14 03:33] LABS: HEMATOCRIT 21.2 % (35.0-45.0); HEMOGLOBIN 6.2 g/dL (11.7-15.5); RDW 23.2 % (11.0-15.0)
[2017-08-14] MEDS: Pantoprazole 40 mg EC Tab PO SCH (06:14)
[2017-08-14 08:00] VITALS: O2SAT 100
[2017-08-14 09:00] LABS: ALB/GLOB RATIO 1.2 (1.1-1.8); ALKALINE PHOSPHATASE 39 U/L (38-126); ALT/SGPT 27 U/L (7-56); AST/SGOT 16 U/L (14-36); BILIRUBIN,TOTAL 0.7 mg/dL (0.2-1.3); BLOOD UREA NITROGEN 9 mg/dL (7-21); CALCIUM 8.8 mg/dL (8.4-10.5); CARBON DIOXIDE 26 mmol/L (21-33); CHLORIDE 107 mmol/L (98-107); GFR AFRICAN-AMERICAN > 60; GLUCOSE,RANDOM 74 mg/dL (70-110); SODIUM 140 mmol/L (132-148); TOTAL PROTEIN 6.6 g/dL (5.8-8.3)
[2017-08-14 09:03] LABS: BASO # 0.05 K/mm3 (0.0-2.0); BASO % 0.7 % (0.0-3.0); EOS # 0.1 (0.0-0.7); EOS % 1.9 % (1.5-5.0); GRAN # 4.61 (1.4-6.5); GRAN % 61.7 % (50.0-68.0); HEMATOCRIT 28.8 % (36.0-48.0); LYMPH # 1.8 (1.2-3.4); LYMPH % 23.6 % (22.0-35.0); MEAN CELL VOLUME 58.1 fl (80.0-105.0); MEAN CORPUSCULAR HEMOGLOBIN 16.9 pg (25.0-35.0); MEAN CORPUSCULAR HGB CONC 29.2 g/dl (31.0-37.0); MONO # 0.9 (0.1-0.6); MONO % 12.1 % (1.0-6.0); PLATELET COUNT 114 10^3/uL (120.0-450.0); WHITE BLOOD COUNT 7.5 10^3/ul (4.5-11.0)
[2017-08-14] MEDS: POLYETHYLENE GLYCOL 3350 17 GM/Dose PACKET PO SCH (09:34)
[2017-08-14] MEDS ORDERED: Iron Sucrose 100 mg/5 ml Inj IVP ONE (11:04)
[2017-08-14] MEDS: Dexamethasone 4 mg/1 ml IVP SCH ×2 (11:45→17:35)
--- NOTE | 2017-08-14 13:03 | CP.PCM.PN ---
<Michele Mittal - Last Filed: 08/14/17 13:05> Subjective - Date & Time of Evaluation Date of Evaluation: 08/14/17 Time of Evaluation: 08:01 - Subjective Subjective: Patient was seen and examined at the [facility] this morning. Per nursing no acute events occurred overnight. The patient still reports cramping in the hands and feel and reports fullness in her ears. The patient denies any chest pain, shortness of breath, abdominal pain, nausea, vomiting, lightheadedness, dizziness, or any other complaints. Objective - Vital Signs/Intake and Output Vital Signs (last 24 hours): Temp Pulse Resp BP Pulse Ox 99 F 68 20 127/85 100 08/14/17 08:00 08/14/17 10:00 08/14/17 08:00 08/14/17 08:00 08/14/17 08:00 Intake and Output: 08/14/17 08/14/17 06:59 18:59 Intake Total 900 Balance 900 - Medications Medications: Current Medications Dexamethasone (Decadron Inj) 4 mg IVP Q6 [facility] Last Admin: 08/14/17 11:45 Dose: 4 mg Folic Acid (Folic Acid) 1 mg PO DAILY [facility] Last Admin: 08/14/17 09:34 Dose: 1 mg Gabapentin (Neurontin) 300 mg PO HS [facility] PRN Reason: Protocol Last Admin: 08/13/17 21:45 Dose: 300 mg Nicotine (Nicoderm Cq) 1 patch TD DAILY [facility] Last Admin: 08/14/17 09:34 Dose: 1 patch Pantoprazole Sodium (Protonix Ec Tab) 40 mg PO 0600 [facility] Last Admin: 08/14/17 06:14 Dose: 40 mg Polyethylene Glycol (Miralax) 17 gm PO DAILY [facility] Last Admin: 08/14/17 09:34 Dose: 17 gm - Labs Labs: 08/14/17 08:35 08/14/17 08:35 - Head Exam Head Exam: ATRAUMATIC, NORMAL INSPECTION, NORMOCEPHALIC - Eye Exam Eye Exam: EOMI, Normal appearance, PERRL. absent: Periorbital tenderness Pupil Exam: NORMAL ACCOMODATION, PERRL. absent: Irregular - ENT Exam ENT Exam: Mucous Membranes Moist. absent: Normal Oropharynx - Neck Exam Neck Exam: Full ROM, Normal Inspection - Respiratory Exam Respiratory Exam: Clear to Ausculation Bilateral, NORMAL BREATHING PATTERN. absent: Rales, Rhonchi - Cardiovascular Exam Cardiovascular Exam: REGULAR RHYTHM, RRR, +S1, +S2. absent: Rubs - GI/Abdominal Exam GI & Abdominal Exam: Soft, Normal Bowel Sounds. absent: Rigid, Tenderness - Extremities Exam Extremities Exam: Full ROM, Normal Inspection - Back Exam Back Exam: NORMAL INSPECTION. absent: paraspinal tenderness - Neurological Exam Neurological Exam: Alert, Awake, CN II-XII Intact - Psychiatric Exam Psychiatric exam: Normal Affect, Normal Mood - Skin Skin Exam: Dry, Intact Assessment and Plan - Assessment and Plan (Free Text) Assessment: 42 F with h/o Fe def anemia, sp prbc in April at [facility], non compliant with use of FeSO4 due to constipation and hemorrhoids, has periods 7 days heavy/month regular, not worked up for the cause, denies elier blood or melena. Patient came for symptoms of weakness, cramps in the whole body related with activity. Patient also c/o intermittent sudden difficulty in swallowing of food liquid or solids for brief duration. H/o SVT about 3 times last time went to [facility] was found to be anemic. Plan: 1. Parasthesias and weakness - currently asymptomatic - Patient reports transient parasthesias and weakness in b/l UE and LE, associated with exertion; occurs most while she is at work - No focal deficits noted on neurological exam, hold off on MRI at this time - Likely 2/2 symptomatic anemia, less likely polyneuropathy vs MS - Ordered 2U PRBC to treat symptomatic anemia - Neuro consult appreciated. -Brain MRI showed Flair cyst 3mm (pituitary cyst possible) and was recommended to get a Pituitary MRI as follow up. Will follow up with results. -Spinal Canal cervical w/o CT contrast showed central disc herniation at C4-5. Neurosurgery was consulted. F/U with recs. 2. Symptomatic anemia - Hgb 8.4 s/p transfusion of packed red blood cells. - Hemodynamically stable at this time, no current active bleeding - Fe before transfusion was 14 and after transfusion was 116. Patient is to also receive 1 unit of Venofer. - Continue Fall precautions - Continue to monitor H/H with serial CBC's. 3. Dysuria - Patient continues to report "discomfort" with urination, but no urgency, frequency, or burning. No F/C. - UCx ordered, pending - Hold abx at this time, as she is currently afebrile with no leukocytosis, pending UCx results 4. Constipation - Patient reports chronic constipation, worsened by iron supplements. Has tried colace in the past, to no avail - Stil reports no bowel movement. Continue Miralax. 5. h/o SVT - EKG in ER shows NSR with no tachycardia - Continue to monitor 6. h/o LIANNA and PTSD - Patient noncompliant with medications 7. Intermittent dysphagia - currently asymptomatic - Likely esophageal dysmotility associated with LIANNA - Consider GI consult for EGD if she continues to be symptomatic GI PPx -Continue Protonix DVT ppx -Continue SCD's <Naty CHERRY,Melody - Last Filed: 08/17/17 16:26> Objective - Vital Signs/Intake and Output Vital Signs (last 24 hours): Temp Pulse Resp BP Pulse Ox 98.1 F 75 20 136/91 H 100 08/15/17 06:00 08/15/17 06:00 08/15/17 06:00 08/15/17 06:00 08/15/17 06:00 - Labs Labs: 08/15/17 09:50 08/15/17 07:32 Attending/Attestation - Attestation I have personally seen and examined this patient.: Yes I have fully participated in the care of the patient.: Yes I have reviewed all pertinent clinical information, including history, physical exam and plan: Yes Notes (Text): 08/17/17 16:23 Patient was seen and examined with medical coordinator pesticide use. Agreed with resident assessment and plan. 42 Yrs old female was admitted with symptomatic anemia, hemoglobin 5.9 due to menorrhagia, SP 2 units PRBC, has iron deficiency anemia , will start on IV Iron, followed by oral Iron, need OBGYN follow up as out patient. Patient was also giving history of Numbness in both hands, MRI C spine showed compression of C4-5, no other focal deficit, case was discussed with Neurology. Neuro surgery consulted is requested if no plan for any surgery, can DC home on Medrol Pack, oral Iron , and close OBGYN/Neuro follow up, Patient is also found to have Incidental Pituitary adenoma, will order hormnal work up , will get endocrine consulted, need outpatient follow up with endocrinology. Management plan was discussed in detail with patient Education was provided.
--- NOTE | 2017-08-14 18:34 | PN ---
CHIEF COMPLAINT: Followup for paresthesias of the extremities and worsening spasms. SUBJECTIVE: The patient seen and examined at bedside. She underwent MRI of the brain and thoracic spine which showed no evidence of demyelinating disease. She had MRI of the cervical spine though which showed at C4-C5 central disc herniation causing moderate compression on the cervical spinal cord, possibly causing some compressive myelopathy symptoms given her paresthesias. She is currently on steroids 4 mg IV q.6 and gabapentin 300 mg p.o. at bedtime for neuropathic pain relief. Currently, she has some mild back spasms, but otherwise, no focal motor weakness. Neurosurgery consult pending given the MRI cervical spine findings. Her hemoglobin is much better today, it is 8.4. PAST MEDICAL HISTORY: Anemia, menorrhagia, SVT, generalized anxiety disorder, PTSD. PAST SURGICAL HISTORY: Breast reduction, right salpingectomy for ectopic . FAMILY HISTORY: MS in cousin, no MS in first degree relatives. Her mother had lupus. SOCIAL HISTORY: Smokes one-fourth pack of cigarettes per day for past 15 years; drinks alcohol occasionally, 1 to 2 drinks weekly. No illicit drug use. REVIEW OF SYSTEMS: A 14-point review of systems is negative except as per the HPI. PHYSICAL EXAMINATION: VITAL SIGNS: Temperature 99, pulse rate of 71, blood pressure 127/85, respiration rate 20, oxygen saturation 100% via room air. GENERAL: The patient is sitting up in bed, in no acute distress. HEENT: Atraumatic and normocephalic. PERRLA. Extraocular muscles intact. NECK: Supple. No JVD. No adenopathy noted. LUNGS: Clear to auscultation. No adventitious sounds. HEART: S1 and S2. Normal rate and rhythm. No murmurs, rubs, or gallops. ABDOMEN: Soft, nontender, and nondistended. Bowel sounds present. EXTREMITIES: No clubbing and no cyanosis. Peripheral pulses 2+ felt bilaterally. NEUROLOGIC: The patient is alert, oriented to person, place, month and year. Speech is fluent without any errors. Cranial nerves II through XII intact. Motor exam, moves all extremities equally. Toes downgoing bilaterally. Sensory exam: Light touch, pinprick, proprioception, vibration intact. DTRs are 2+ throughout. Coordination: [id number] intact. Gait is deferred for now. ASSESSMENT AND PLAN: This is a 42-year-old woman with past medical history of chronic anemia, menorrhagia, supraventricular tachycardia, generalized anxiety disorder, posttraumatic stress disorder, intermittent medication noncompliant, presented to the hospital with complaints of numbness and weakness in the bilateral hands with generalized weakness and fatigue and diffuse muscle cramps. She has no focal motor weakness on examination. Her paresthesias are likely secondary to underlying possible cervical myelopathy from C4-C5, but it does not correlate with her distribution of her numbness where she mentions that it is in her hands more rather than her shoulder areas. Her generalized weakness is secondary to acute anemia. At this time, her MRI of the cervical spine showed C4-C5 central disc herniation causing mild compression of the cervical spinal cord; therefore, pending neurosurgical evaluation and is on Decadron 4 mg IV q.6. She is also on gabapentin 300 mg p.o. at bedtime which will help her with underlying paresthesias. At this time, recommend to: 1. Follow up with neurosurgery's recommendation with regards to her MRI of the cervical spine on the C4-C5 causing mild compression on the cervical cord. 2. Continue with tapering dose of Medrol Dosepak as an outpatient. 3. Continue gabapentin 300 mg p.o. at bedtime for neuropathic pain relief. At this time, she is clinically stable. Thank you for this consult. Steven Brizuela MD
[2017-08-15] MEDS: Dexamethasone 4 mg/1 ml IVP SCH ×3 (00:03→16:04)
[2017-08-15 01:44] VITALS: RESP 20
[2017-08-15] MEDS: Pantoprazole 40 mg EC Tab PO SCH (06:10)
--- NOTE | 2017-08-15 06:32 | CON ---
ENDOCRINOLOGY CONSULT LOCATION: Room 368. HISTORY OF PRESENT ILLNESS: This is a 42-year-old female, admitted with anemia and currently undergoing hematologic and neurologic workup and is also being referred for endocrine evaluation of menorrhagia and possible underlying endocrinopathy. PAST MEDICAL HISTORY: History of heavy monthly menstrual bleeding with menorrhagia lasting a week to 10 days as noted, history of posttraumatic stress syndrome, and generalized anxiety state with marked insomnia. FAMILY HISTORY: Positive for hypertension and heart disease and there is strong history of systemic lupus, multiple sclerosis and rheumatoid arthritis. There is also history of chronic GI cancers in the family. SOCIAL HISTORY: The patient smokes half a pack a day with occasional social alcohol use. No other illicit drug use. REVIEW OF SYSTEMS: Admits to generalized body weakness with progressive bouts of dizziness, lightheadedness, worse on the day of admission. No chest pains or palpitations or PNDs, but admits to progressive shortness of breath, especially on exertion. Her oral intake is variable with nausea, dyspepsia, and occasional odynophagia as noted. Also admits to habitual constipation. PHYSICAL EXAMINATION GENERAL: Obese female, in no apparent distress. VITAL SIGNS: Blood pressure 140/80; pulse of 100 beats per minute and regular; temperature 98; respirations 20. Height is 5 feet 3 inches, weight is 215 pounds. HEENT: Head is normocephalic. Eyes; anicteric with pink conjunctivae. Funduscopy not possible at this time. Ears, nose and throat otherwise normal. NECK: Supple. Thyroid gland is normal in size. No carotid bruits or any cervical adenopathy. CARDIOPULMONARY: Adynamic precordium, S1 and S2 is rapid and regular. LUNGS: Clear to auscultation. ABDOMEN: Flat and soft with positive bowel sounds. EXTREMITIES: No peripheral edema. Pulses are +2 bilaterally. LABORATORY DATA: Chemistry showed a BUN of 9, sodium 140, potassium 4.0, chloride 107, CO2 of 26, glucose 74, and creatinine 0.6. ASSESSMENT: This is a 42-year-old female with moderate anemia and underlying menorrhagia with recent onset of upper and lower extremity paresthesias and weakness with underlying constitutional symptoms and is now being referred for endocrine evaluation of possible underlying endocrinopathy. PLAN OF MANAGEMENT: Discussed with the patient and staff. We will concur with the comprehensive hormonal profile obtained, and we will add total T4 and serum cortisol level and we will titrate incrementally as indicated to optimize metabolic control. We will hold off on the MRI pending the availability of the prolactin level as needed. We will also await recommendations of neurology as scheduled. We will follow. Alana Dolan MD
[2017-08-15 07:58] LABS: ALB/GLOB RATIO 1.3 (1.1-1.8); ALKALINE PHOSPHATASE 50 U/L (38-126); ALT/SGPT 18 U/L (7-56); AST/SGOT 33 U/L (14-36); BILIRUBIN,TOTAL 0.5 mg/dL (0.2-1.3); BLOOD UREA NITROGEN 14 mg/dL (7-21); CALCIUM 9.5 mg/dL (8.4-10.5); CARBON DIOXIDE 22 mmol/L (21-33); CHLORIDE 107 mmol/L (98-107); GFR AFRICAN-AMERICAN > 60; GLUCOSE,RANDOM 112 mg/dL (70-110); POTASSIUM 4.4 mmol/L (3.6-5.0); SODIUM 141 mmol/L (132-148); TOTAL PROTEIN 7.8 g/dL (5.8-8.3)
[2017-08-15 08:12] LABS: T4 6.4 ug/dL (5.5-11.0)
[2017-08-15 08:26] LABS: THYROID STIMULATING HORMONE 0.25 mIU/mL (0.46-4.68)
[2017-08-15 09:41] VITALS: BP 136/91; PULSE 75; TEMP 98.1
[2017-08-15 10:04] LABS: HEMATOCRIT 31.2 % (36.0-48.0); MEAN CELL VOLUME 58.5 fl (80.0-105.0); MEAN CORPUSCULAR HEMOGLOBIN 17.1 pg (25.0-35.0); MEAN CORPUSCULAR HGB CONC 29.2 g/dl (31.0-37.0); RED CELL DISTRIBUTION WIDTH 27.9 % (11.5-14.5); WHITE BLOOD COUNT 12.4 10^3/ul (4.5-11.0)
[2017-08-15 10:38] LABS: HEMOGLOBIN F <1.0 Percent (<2.0)
[2017-08-15] MEDS: POLYETHYLENE GLYCOL 3350 17 GM/Dose PACKET PO SCH (11:02)
[2017-08-15 11:11] LABS: PLATELET COUNT 110 10^3/uL (120.0-450.0)
--- NOTE | 2017-08-15 13:27 | CP.PCM.CON ---
History of Present Illness - History of Present Illness History of Present Illness: SPINE CONSULT Pt seen and examined. Full consult dictated. 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 Needs decompression/fusion but she is signing out AMA to take care of autistic son. Explained need for surgery before cord changes become permanent. Gave her card and will arrange f/u appt. Thanks. Past Patient History - Infectious Disease Hx of Infectious Diseases: None - Tetanus Immunizations Tetanus Immunization: Unknown - Past Social History Smoking Status: Light Smoker < 10 Cigarettes Daily - CARDIAC Hx Cardiac Disorders: Yes Hx Cardia Arrhythmia: Yes (SVT) - PULMONARY Hx Respiratory Disorders: No - NEUROLOGICAL Hx Neurological Disorder: No - HEENT Hx HEENT Problems: No - RENAL Hx Chronic Kidney Disease: No - ENDOCRINE/METABOLIC Hx Endocrine Disorders: No Hx Diabetes Mellitus Type 2: (family Hx: Maternal side) - HEMATOLOGICAL/ONCOLOGICAL Hx Blood Disorders: Yes Hx Anemia: Yes (with blood transfusions) - INTEGUMENTARY Hx Dermatological Problems: No - MUSCULOSKELETAL/RHEUMATOLOGICAL Hx Musculoskeletal Disorders: No Hx Falls: No Hx Unsteady Gait: No - GASTROINTESTINAL Hx Gastrointestinal Disorders: No - GENITOURINARY/GYNECOLOGICAL Hx Genitourinary Disorders: No - PSYCHIATRIC Hx Psychophysiologic Disorder: Yes Hx Anxiety: Yes Hx Substance Use: No - SURGICAL HISTORY Hx Hysterectomy: (piece of uterus, right fallopian tube) Other/Comment: breast reduction. 2 C-sections - ANESTHESIA Hx Anesthesia: Yes Hx Anesthesia Reactions: No Hx Malignant Hyperthermia: No Meds Allergies/Adverse Reactions: Allergies Allergy/AdvReac Type Severity Reaction Status Date / Time No Known Allergies Allergy Verified 08/12/17 19:46 - Medications Medications: Current Medications Dexamethasone (Decadron Inj) 4 mg IVP Q6 [facility] Last Admin: 08/15/17 06:10 Dose: 4 mg Folic Acid (Folic Acid) 1 mg PO DAILY [facility] Last Admin: 08/15/17 11:02 Dose: 1 mg Gabapentin (Neurontin) 300 mg PO HS [facility] PRN Reason: Protocol Last Admin: 08/14/17 21:21 Dose: 300 mg Ibuprofen (Motrin Tab) 600 mg PO BID PRN PRN Reason: Pain, moderate (4-7) Last Admin: 08/15/17 00:03 Dose: 600 mg Nicotine (Nicoderm Cq) 1 patch TD DAILY [facility] Last Admin: 09/16/17 11:02 Dose: 1 patch Pantoprazole Sodium (Protonix Ec Tab) 40 mg PO 0600 [facility] Last Admin: 08/15/17 06:10 Dose: 40 mg Polyethylene Glycol (Miralax) 17 gm PO DAILY [facility] Last Admin: 08/15/17 11:02 Dose: 17 gm Results - Vital Signs Recent Vital Signs: Last Vital Signs Temp 98.1 F 08/15/17 06:00 Pulse 75 08/15/17 06:00 Resp 20 08/15/17 06:00 BP 136/91 H 08/15/17 06:00 Pulse Ox 100 08/15/17 06:00 - Labs Result Diagrams: 08/15/17 09:50 08/15/17 07:32 Labs: Laboratory Results - last 24 hr 08/15/17 08/15/17 08/15/17 07:32 07:32 08:26 WBC RBC Hgb Hct MCV MCH MCHC RDW Plt Count Sodium 141 Potassium 4.4 Chloride 107 Carbon Dioxide 22 Anion Gap 16 BUN 14 Creatinine 0.6 Est GFR ( Amer) > 60 Est GFR (Non-Af Amer) > 60 Random Glucose 112 H Calcium 9.5 Total Bilirubin 0.5 AST 33 ALT 18 Alkaline Phosphatase 50 Total Protein 7.8 Albumin 4.4 Globulin 3.4 Albumin/Globulin Ratio 1.3 Thyroxine (T4) 6.4 TSH 3rd Generation 0.25 L Stool Occult Blood Negative 08/15/17 09:50 WBC 12.4 H D RBC 5.33 Hgb 9.1 L Hct 31.2 L MCV 58.5 L MCH 17.1 L MCHC 29.2 L RDW 27.9 H Plt Count 110 L Sodium Potassium Chloride Carbon Dioxide Anion Gap BUN Creatinine Est GFR ( Amer) Est GFR (Non-Af Amer) Random Glucose Calcium Total Bilirubin AST ALT Alkaline Phosphatase Total Protein Albumin Globulin Albumin/Globulin Ratio Thyroxine (T4) TSH 3rd Generation Stool Occult Blood
--- NOTE | 2017-08-15 18:21 | PN ---
ENDO FOLLOWUP NOTE DATE: LOCATION: Room 368 SUBJECTIVE: This is a 42-year-old female admitted with moderate anemia and underlying menometrorrhagia despite oral iron supplementation as given. Her repeat chemistry showed a BUN of 14, sodium 141, potassium 4.4, chloride 107, CO2 22, glucose 112, creatinine 0.6. Her repeat hemoglobin was 9.1 with a hematocrit of 31.2 and WBC of 12.4. Her hormonal profile showed a TSH of 0.25 and a T4 of 6.4 indicative of the so called thyroid syndrome. The female hormones are still pending at this time and also the prolactin and cortisol levels are pending as noted. We will continue the present medical management and obtain serum chemistries of supplement accordingly as needed. From the endocrine view point, there is no indication of any kind of hormonal intervention at this time pending the availability of the comprehensive hormonal profile as set out. We will follow. Alana Dolan MD
[2017-08-15 18:25] LABS: FSH 3.8 mIU/mL
--- NOTE | 2017-08-15 23:17 | CP.PCM.DIS ---
Provider - Provider Date of Admission: 08/14/17 11:06 Attending physician: Lisandro Vegas MD Primary care physician: Ross Torres MD Consults: Neuro - Gelacio Endo- [facility] Neurosurgery - [facility] Course - Lab Results Lab Results: Most Recent Lab Values WBC 12.4 10^3/ul (4.5-11.0) H D 08/15/17 09:50 RBC 5.33 10^6/uL (3.5-6.1) 08/15/17 09:50 Hgb 9.1 g/dL (12.0-16.0) L 08/15/17 09:50 Hct 31.2 % (36.0-48.0) L 08/15/17 09:50 MCV 58.5 fl (80.0-105.0) L 08/15/17 09:50 MCH 17.1 pg (25.0-35.0) L 08/15/17 09:50 MCHC 29.2 g/dl (31.0-37.0) L 08/15/17 09:50 RDW 27.9 % (11.5-14.5) H 08/15/17 09:50 Plt Count 110 10^3/uL (120.0-450.0) L 08/15/17 09:50 Gran % 61.7 % (50.0-68.0) 08/14/17 08:35 Lymph % (Auto) 23.6 % (22.0-35.0) 08/14/17 08:35 [place] % (Auto) 12.1 % (1.0-6.0) H 08/14/17 08:35 Eos % (Auto) 1.9 % (1.5-5.0) 08/14/17 08:35 Baso % (Auto) 0.7 % (0.0-3.0) 08/14/17 08:35 Gran # 4.61 (1.4-6.5) 08/14/17 08:35 Lymph # 1.8 (1.2-3.4) 08/14/17 08:35 [place] # 0.9 (0.1-0.6) H 08/14/17 08:35 Eos # 0.1 (0.0-0.7) 08/14/17 08:35 Baso # 0.05 K/mm3 (0.0-2.0) 08/14/17 08:35 Neutrophils % (Manual) 54 % (50.0-70.0) 08/12/17 20:30 Lymphocytes % (Manual) 41 % (22.0-35.0) H 08/12/17 20:30 Monocytes % (Manual) 3 % (1.0-6.0) 08/12/17 20:30 Eosinophils % (Manual) 2 % (0.0-3.0) 08/12/17 20:30 Platelet Evaluation Normal (NORMAL) 08/12/17 20:30 Large Platelets Present 08/12/17 20:30 Hypochromasia 3+ 08/12/17 20:30 Poikilocytosis (manual Slight 08/12/17 20:30 Anisocytosis (manual) 1+ 08/12/17 20:30 Microcytosis (manual) 2+ 08/12/17 20:30 Tear Drop Cells Slight 08/12/17 20:30 Ovalocytes Slight 08/12/17 20:30 Retic Count 0.66 % (0.5-1.5) 08/13/17 11:56 Hemoglobin A 97.2 Percent (>96.0) 08/12/17 20:30 Hemoglobin A2 1.8 Percent (1.8-3.5) 08/12/17 20:30 Hemoglobin C 0.0 Percent (0.0-0.0) 08/12/17 20:30 Hemoglobin F () <1.0 Percent (<2.0) 08/12/17 20:30 Hemoglobin S 0.0 Percent (0.0-0.0) 08/12/17 20:30 Variant Hemoglobin 0.0 Percent (0.0-0.0) 08/12/17 20:30 Hemoglobinopathy Red Blood Count 3.96 Mill/mcL (3.80-5.10) 08/12/17 20:30 Hemoglobinopathy Hct 21.2 % (35.0-45.0) L 08/12/17 20:30 Hemoglobinopathy Hgb 6.2 g/dL (11.7-15.5) L 08/12/17 20:30 Hemoglobinopathy MCV 53.5 fL (80.0-100.0) L 08/12/17 20:30 Hemoglobinopathy MCH 15.6 pg (27.0-33.0) L 08/12/17 20:30 Hemoglobinopathy RDW 23.2 % (11.0-15.0) H 08/12/17 20:30 Hemoglobinopathy Interp See note 08/12/17 20:30 Sodium 141 mmol/L (132-148) 08/15/17 07:32 Potassium 4.4 mmol/L (3.6-5.0) 08/15/17 07:32 Chloride 107 mmol/L (98-107) 08/15/17 07:32 Carbon Dioxide 22 mmol/L (21-33) 08/15/17 07:32 Anion Gap 16 (10-20) 08/15/17 07:32 BUN 14 mg/dL (7-21) 08/15/17 07:32 Creatinine 0.6 mg/dL (0.5-1.4) 08/15/17 07:32 Est GFR ( Amer) > 60 08/15/17 07:32 Est GFR (Non-Af Amer) > 60 08/15/17 07:32 Random Glucose 112 mg/dL (70-110) H 08/15/17 07:32 Calcium 9.5 mg/dL (8.4-10.5) 08/15/17 07:32 Phosphorus 4.2 mg/dL (2.5-4.5) 08/13/17 08:00 Magnesium 2.0 mg/dL (1.7-2.2) 08/13/17 08:00 Iron 116 ug/dL (45-180) 08/13/17 14:25 TIBC 410 ug/dL (265-497) 08/13/17 14:25 % Saturation 28 % (20-55) 08/13/17 14:25 Ferritin 4.4 ng/mL 08/12/17 20:30 Total Bilirubin 0.5 mg/dL (0.2-1.3) 08/15/17 07:32 AST 33 U/L (14-36) 08/15/17 07:32 ALT 18 U/L (7-56) 08/15/17 07:32 Alkaline Phosphatase 50 U/L (38-126) 08/15/17 07:32 Total Protein 7.8 g/dL (5.8-8.3) 08/15/17 07:32 Albumin 4.4 g/dL (3.0-4.8) 08/15/17 07:32 Globulin 3.4 gm/dL 08/15/17 07:32 Albumin/Globulin Ratio 1.3 (1.1-1.8) 08/15/17 07:32 Vitamin B12 239 pg/mL (239-931) 08/13/17 11:56 Folate 4.7 ng/mL 08/13/17 11:56 Thyroxine (T4) 6.4 ug/dL (5.5-11.0) 08/15/17 07:32 TSH 3rd Generation 0.25 mIU/mL (0.46-4.68) L 08/15/17 07:32 FSH 3rd Generation 3.8 mIU/mL 08/15/17 09:50 Luteinizing Hormone 15.6 mIU/mL 08/15/17 09:50 Prolactin 7.9 ng/mL (3.0-18.9) 08/15/17 09:50 Urine Color Yellow (YELLOW) 08/12/17 21:00 Urine Appearance Clear (CLEAR) 08/12/17 21:00 Urine pH 7.0 (4.7-8.0) 08/12/17 21:00 Ur Specific [place] 1.020 (1.005-1.035) 08/12/17 21:00 Urine Protein Trace mg/dL (<30 mg/dL) H 08/12/17 21:00 Urine Glucose (UA) Negative mg/dL (NEGATIVE) 08/12/17 21:00 Urine Ketones Negative mg/dL (NEGATIVE) 08/12/17 21:00 Urine Blood Negative (NEGATIVE) 08/12/17 21:00 Urine Nitrate Negative (NEGATIVE) 08/12/17 21:00 Urine Bilirubin Negative (NEGATIVE) 08/12/17 21:00 Urine Urobilinogen 1.0 E.U./dL (<1 E.U./dL) H 08/12/17 21:00 Ur Leukocyte Esterase Trace Laila/uL (NEGATIVE) H 08/12/17 21:00 Urine RBC Negative /hpf (0-2) 08/12/17 21:00 Urine WBC 5 - 10 /hpf (0-6) 08/12/17 21:00 Ur Epithelial Cells 3 - 4 /hpf (0-5) 08/12/17 21:00 Urine Bacteria Trace (NEG) 08/12/17 21:00 Stool Occult Blood Negative (NEGATIVE) 08/15/17 08:26 Blood Type A POSITIVE 08/12/17 22:00 Blood Type Confirm A POSITIVE 08/12/17 22:52 Antibody Screen Negative 08/12/17 22:00 Crossmatch See Detail 08/12/17 22:00 BBK History Checked No verified bt 08/12/17 22:00 Discharge Exam - Head Exam Head Exam: ATRAUMATIC, NORMAL INSPECTION, NORMOCEPHALIC Discharge Plan - Follow Up Plan Condition: GOOD Disposition: HOME/ ROUTINE Additional Instructions: Follow up With the following within 1-2 weeks. PMD GI doctor Neurologist Neurosurgeon Animal Rides Manager [employer]ological Drafter Return to ER if symptoms exacerbate Take food with pain medications (NSAIDS). Referrals: Ross Torres MD [Primary Care Provider] - Zach CHERRY,MD Tom [Medical Doctor] - Alana Dolan MD [Medical Doctor] - Steven Brizuela MD [Staff Provider] - Kim Maxwell MD [Medical Doctor] -
[2017-08-16 12:56] LABS: CORTISOL AM 1.8 ug/dL (4.46-22.7)
[2017-08-16 13:01] LABS: FSH 3.9 mIU/mL
--- NOTE | 2017-08-17 09:08 | CON ---
DATE: 08/15/2017 REASON FOR CONSULTATION: Hand numbness and weakness. HISTORY OF PRESENT ILLNESS: The patient is a 42-year-old young woman who states that over the past couple of years with no antecedent trauma she has developed difficulty functioning with her arms with weakness and tingling. She also has noted difficulty with her gait. 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 She notes problems with fine motor activities such as trying to button buttons, etc. No loss of bowel or bladder control. She has not had this worked up until this hospitalization where an MRI was done of her brain, cervical, and thoracic spine. PAST MEDICAL HISTORY: Significant for anemia. She has not really been compliant with her at home iron therapy. She has SVT, anxiety and PTSD. This has happened since her young son was discharged from a residency where he was being taken care of his autism, ADHD, and OCD and now he is living with her. She has issues with menorrhagia as well. MEDICATIONS: Listed on the chart. ALLERGIES: SHE IS NOT ALLERGIC TO ANY MEDICATIONS THAT SHE KNOWS OF. PAST SURGICAL HISTORY: Significant for breast reduction and a right salpingectomy for an ectopic . SOCIAL HISTORY: She smokes quarter pack a day and has one to two drinks weekly, but denies use of any other drugs. PHYSICAL EXAMINATION: NECK: She has a fairly full range of motion of her cervical spine, but complains of pain in the back of her neck with extension. Extension and lateral rotation at the same time aggravates the pain in the neck with some radiation to the trapezius muscles. EXTREMITIES: She moves both upper extremities fully and actively. She has some generalized weakness throughout. Muscle groups are in general about 4/5, but her right wrist extensors seems to be a little weaker than the left side even though she is right hand dominant. She states everything feels okay to light touch throughout. She has a positive Wright's on her left hand. No clonus or Babinski is noted in the lower extremities. Good distal pulses throughout. LABORATORY DATA: MRI is reviewed and a shows a large central herniated disk causing significant cord compression at C4-C5. There appears to be some tracking of the disk behind the body of C4 as well. 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 I explained the need for decompressing this before any changes in the spinal cord become permanent and then decompression at that point may not improve any of her symptoms. However, she is presently signing out against medical advise as her 18-year-old is trying to care of her autistic son, and she says it is not something that is working out. I gave her card for the office and emphasized to her the need of close followup with this, and the need for decompression and fusion of this level. I explained that if this is left unattended to and becomes worse that the changes that may occur in the spinal cord could become permanent and then the surgery would do nothing to alleviate them. She seemed to understand. Nurse was present in the room at the same time where this whole discussion took place. I gave her card as I mentioned she should see at [facility] in one to two weeks and in the meantime have her look into her job to see if she has any disability available so that she would have some coverage if we were to do the surgery and then rehabilitate her to get her back to her job as soon as possible. Thank you for allowing me to participate in the care of your patient. Rafael Barksdale MD
== END 2017-08-15 16:08 | disposition left against medical advice (07) | DRG 395 ==
LOC: ED 19:23 → ERH 21:45 → 3RNO 23:20 → OBSVTOIN 08-14 11:06
PROVIDERS: ADMIT Internal Medicine; ATTEND Internal Medicine
PROC: 30233N1 Transfusion of Nonautologous Red Blood Cells into Peripheral Vein, Percutaneous Approach (ICD-10-PCS; principal; 2017-08-13)
DX: D50.0 Iron deficiency anemia secondary to blood loss (chronic) (principal); N92.1 Excessive and frequent menstruation with irregular cycle; M50.021 Cervical disc disorder at C4-C5 level with myelopathy; R13.10 Dysphagia, unspecified; F41.1 Generalized anxiety disorder; F17.210 Nicotine dependence, cigarettes, uncomplicated; F43.10 Post-traumatic stress disorder, unspecified; Z80.0 Family history of malignant neoplasm of digestive organs; Z83.3 Family history of diabetes mellitus; Z82.0 Family history of epilepsy and other diseases of the nervous system; Z83.2 Family history of diseases of the blood and blood-forming organs and certain disorders involving the immune mechanism; Z82.61 Family history of arthritis; G47.00 Insomnia, unspecified; Z82.49 Family history of ischemic heart disease and other diseases of the circulatory system; K59.00 Constipation, unspecified; Z79.899 Other long term (current) drug therapy; Z81.8 Family history of other mental and behavioral disorders; Z90.710 Acquired absence of both cervix and uterus; Z91.14 Patient's other noncompliance with medication regimen; R30.0 Dysuria; K64.9 Unspecified hemorrhoids

== ENCOUNTER 2017-08-23 10:45 | Observation (INO) | payer OTHER ==
--- NOTE | 2017-08-23 11:41 | ED PDOC ---
Arrival/HPI - General Chief Complaint: ENT Problem Time Seen by Provider: 08/23/17 11:16 Historian: Patient - History of Present Illness Narrative History of Present Illness (Text): 08/23/17 11:52 A 42 year old female, whose past medical history includes anemia, presents with having difficulty swallowing liquids and solids for the past few weeks. The patient states that she is able to eat and drink, but has a sensation that food gets stuck in the middle of her esophagus. The patient denies fevers, chills, headache, dizziness, chest pain, shortness of breath, dyspnea on exertion, cough , abdominal pain, nausea, vomiting, diarrhea, back pain, neck pain, urinary/ bowel changes, or any other complaint. Past Medical History - Provider Review Nursing Documentation Reviewed: Yes - Infectious Disease Hx of Infectious Diseases: None - Tetanus Immunization Tetanus Immunization: Unknown - Cardiac Hx Cardiac Disorders: Yes Hx Cardiac Arrhythmia: Yes (SVT) - Pulmonary Hx Respiratory Disorders: No - Neurological Hx Neurological Disorder: No - HEENT Hx HEENT Disorder: No - Renal Hx Renal Disorder: No - Endocrine/Metabolic Hx Endocrine Disorders: No Hx Diabetes Mellitus Type 2: (family Hx: Maternal side) - Hematological/Oncological Hx Blood Disorders: Yes Hx Anemia: Yes (with blood transfusions) Hx Blood Transfusions: Yes (last one week of 08/14/2017) - Integumentary Hx Dermatological Disorder: No - Musculoskeletal/Rheumatological Hx Musculoskeletal Disorders: No Hx Falls: No Hx Unsteady Gait: No - Gastrointestinal Hx Gastrointestinal Disorders: No - Genitourinary/Gynecological Hx Genitourinary Disorders: No - Psychiatric Hx Psychophysiologic Disorder: Yes Hx Anxiety: Yes Hx Substance Use: No - Surgical History Hx Hysterectomy: No (piece of uterus, right fallopian tube) Other/Comment: breast reduction. 2 C-sections - Anesthesia Hx Anesthesia: Yes Hx Anesthesia Reactions: No Hx Malignant Hyperthermia: No - Suicidal Assessment Feels Threatened In Home Enviroment: No Family/Social History - Physician Review Nursing Documentation Reviewed: Yes Family/Social History: Unknown Family HX Smoking Status: Light Smoker < 10 Cigarettes Daily Hx Alcohol Use: Yes (Social: wine) Hx Substance Use: No Hx Substance Use Treatment: No Allergies/Home Meds Allergies/Adverse Reactions: Allergies No Known Allergies Allergy (Verified 08/23/17 10:48) Home Medications: Home Meds Medication Instructions Recorded Confirmed Folic Acid [Folic Acid] 1 tab PO DAILY 08/12/17 08/23/17 Review of Systems - Physician Review All systems were reviewed & negative as marked: Yes Physical Exam - Physical Exam Narrative Physical Exam (Text): - Review of Systems Constitutional: Normal. absent: Fatigue, Weight Change, Fevers Eyes: Normal ENT: (+) trouble swallowing liquids and solids. denies sore throat, denies tristhmus Respiratory: Normal. absent: SOB, Cough, Sputum Cardiovascular: absent: Chest Pain, Palpitations, Syncope Gastrointestinal: Normal. absent: Abdominal Pain, Diarrhea, Nausea, Vomiting Genitourinary: Normal. absent: Dysuria, Frequency, Hematuria, vaginal bleeding Musculoskeletal: Normal. absent: Arthralgias, Back Pain, Neck Pain Skin: no rashes, no erythema Neurological: absent: Focal Weakness Endocrine: Normal Hemo/Lymphatic: Normal Psychiatric: No suicidal or homicidal ideations Physical exam Patient appears age appropriate in no distress, speaking full sentences without difficulty - Systems Exam Head: Present: Atraumatic, Normocephalic Pupils: Present: PERRL Extroacular Muscles: Present: EOMI Conjunctiva: Present: Normal Mouth: Present: Moist Mucous Membranes Neck: Present: Normal Range of Motion. No: MIDLINE TENDERNESS, Paraspinal Tenderness Respiratory/Chest: Present: Clear to Auscultation, Good Air Exchange. No: Respiratory Distress, Accessory Muscle Use, Tachypneic Cardiovascular: Present: Regular Rate and Rhythm, Normal S1, S2, Peripheal Pulses Present. No: Murmurs Abdomen: Present: Normal Bowel Sounds. No: Tenderness, Distention, Peritoneal Signs, Rebound, Guarding Back: Present: Normal Inspection. No: Midline Tenderness, Paraspinal Tenderness Upper Extremity: Present: Normal Inspection. No: Cyanosis, Edema Lower Extremity: Present: Normal Inspection. No: Edema Neurological: Present: GCS=15, Speech Normal, cranial nerves II through XII fully intact with no cerebellar abnormality, neurosensory fully intact. No focal neurological deficits. Skin: Present: Warm, Dry, Normal Color. No: Rashes Lymphatic: Present: OX3, NI, NC Psychiatric: Present: Alert, Oriented x 3, Normal Insight, Normal Concentration Vital Signs Reviewed: Yes Vital Signs Temp Pulse Resp BP Pulse Ox 08/23/17 15:56 98.2 F 82 17 128/72 98 09/24/17 15:20 69 18 109/65 09/24/17 14:56 69 17 109/65 100 08/23/17 10:55 98.2 F 69 18 118/78 100 Temperature: Afebrile Blood Pressure: Normal Pulse: Regular Respiratory Rate: Normal Appearance: Positive for: Well-Appearing, Non-Toxic, Comfortable Pain Distress: None Mental Status: Positive for: Alert and Oriented X 3 Medical Decision Making ED Course and Treatment: 08/23/17 11:40 Impression: A 42 year old female presents with difficulty swallowing liquids and solids for the past few weeks. Feels that food gets stuck in the middle of her esophagus. On exam, no acute findings. Pt states she is still having the upper extr. complaints for which she was hospitalized her previous visit. No focal neurological deficits on examination. Plan: -- Chest X-ray -- Labs -- Reassess and disposition Prior Visits: Previous records reviewed, patient was admitted for numbness and weakness. She was complaining of having difficulty with fine motor activity. Seen by Dr. Barksdale. Impression was that patient has myelopathy related to herniated disc C4 /C5 patient signed out AGAINST MEDICAL ADVICE. Progress Notes: CHEST X-RAY Dictator : JOI GRULLON MD Report Date : 08/23/2017 13:11:36 IMPRESSION: No active disease. 08/23/17 14:[address] Alonzo, accepted admission to her service pt in no distress, aware of and agrees with plan - Lab Interpretations Lab Results: 08/23/17 12:07 08/23/17 12:07 Lab Results 08/23/17 12:07: Alcohol, Quantitative < 10 08/23/17 12:07: Sodium 140, Potassium 4.4, Chloride 108 H, Carbon Dioxide 25, Anion Gap 11, BUN 13, Creatinine 0.6, Est GFR ( Amer) > 60, Est GFR (Non- Af Amer) > 60, Random Glucose 79, Calcium 8.7, Total Bilirubin 0.5, AST 34, ALT 21, Alkaline Phosphatase 40, Lactate Dehydrogenase 447, Total Creatine Kinase 55 , Troponin I < 0.01, Total Protein 7.2, Albumin 3.9, Globulin 3.3, Albumin/ Globulin Ratio 1.2 08/23/17 12:07: PT 10.2, INR 0.94, APTT 27.2 08/23/17 12:07: WBC 7.3 D, RBC 5.28, Hgb 9.5 L, Hct 32.3 L, MCV 61.2 L, MCH 18.0 L, MCHC 29.4 L, RDW 31.0 H, Plt Count 96 L, Manual Plt Count 114 L, Gran % 62.0, Lymph % (Auto) 26.6, [place] % (Auto) 8.9 H, Eos % (Auto) 1.8, Baso % (Auto) 0.7, Gran # 4.55, Lymph # 2.0, [place] # 0.7 H, Eos # 0.1, Baso # 0.05 I have reviewed the lab results: Yes - RAD Interpretation Radiology Orders: 08/23/17 11:51 CHEST PORTABLE [RAD] Stat - Medication Orders Current Medication Orders: Cyanocobalamin (Vitamin B12 1000 Mcg Tab) 1,000 mcg PO DAILY [facility] Last Admin: 08/24/17 09:57 Dose: 1,000 mcg Dexamethasone (Decadron Inj) 4 mg IVP Q8 [facility] Last Admin: 08/24/17 06:15 Dose: 4 mg IVP Administration Document 08/24/17 06:15 [email or web address] (Rec: 08/24/17 06:[id number] Charges for Administration # of IVP Administrations 1 Folic Acid (Folic Acid) 1 mg PO DAILY [facility] Last Admin: 08/24/17 09:57 Dose: 1 mg Gabapentin (Neurontin) 300 mg PO HS [facility] PRN Reason: Protocol Last Admin: 08/23/17 22:01 Dose: 300 mg Behavioural Document 08/23/17 22:01 [email or web address] (Rec: 08/23/17 22:[id number] Maintenance Maintenance Dose Yes Nonmedicinal Nonmedicinal Interventions Activity Re-Assess: Reassess Psych Meds Document 08/23/17 23:01 [email or web address] (Rec: 08/23/17 23:[id number]) Reassess Psych Med Effective Nicotine (Nicoderm Cq) 1 patch TD DAILY [facility] Pantoprazole Sodium (Protonix Ec Tab) 40 mg PO 0600 [facility] Last Admin: 08/24/17 06:15 Dose: 40 mg Discontinued Medications Acetaminophen (Tylenol 650mg/20.3ml Solution Ud) 650 mg PO ONCE ONE Stop: 08/24/17 06:16 Last Admin: 08/24/17 06:23 Dose: 650 mg MAR Pain/Vitals Document 08/24/17 06:23 [email or web address] (Rec: 08/24/17 06:24 EXOC [id number]) Pain Reassessment Is This A Pain ReAssessment? No Sleep Is patient sleeping during reassessment? No Presence of Pain Presence of Pain Yes Pain Scale Used Pain Scale Used Numeric Location Pain Location Body Site Generalized Description Intermittent Scale Used Numeric Radiation Location no Variations/Patterns no Pain Behavior Facial Grimacing Aggravating Factors Changing Position Alleviating Factors Medication Pantoprazole Sodium (Protonix Inj) 40 mg IVP DAILY [facility] Last Admin: 08/23/17 18:05 Dose: 40 mg IVP Administration Document 08/23/17 18:05 ANTOALL (Rec: 08/23/17 18:06 ANTOALL [id number] ) Charges for Administration # of IVP Administrations 1 - Scribe Statement The provider has reviewed the documentation as recorded by the Frankibute Lockett Provider Scribe Attestation: All medical record entries made by the Scribe were at my direction and personally dictated by me. I have reviewed the chart and agree that the record accurately reflects my personal performance of the history, physical exam, medical decision making, and the department course for this patient. I have also personally directed, reviewed, and agree with the discharge instructions and disposition. Disposition/Present on Arrival - Present on Arrival Any Indicators Present on Arrival: No History of DVT/PE: No History of Uncontrolled Diabetes: No Urinary Catheter: No History of Decub. Ulcer: No History Surgical Site Infection Following: None - Disposition Have Diagnosis and Disposition been Completed?: Yes Diagnosis: Difficulty swallowing Disposition: HOSPITALIZED Disposition Time: 14:03 Patient Plan: Admission Patient Problems: Current Active Problems Problem Status Onset Difficulty swallowing Acute Condition: FAIR
[2017-08-23 12:16] LABS: BASO # 0.05 K/mm3 (0.0-2.0); BASO % 0.7 % (0.0-3.0); EOS # 0.1 (0.0-0.7); EOS % 1.8 % (1.5-5.0); GRAN # 4.55 (1.4-6.5); HEMATOCRIT 32.3 % (36.0-48.0); LYMPH % 26.6 % (22.0-35.0); MEAN CELL VOLUME 61.2 fl (80.0-105.0); MEAN CORPUSCULAR HGB CONC 29.4 g/dl (31.0-37.0); MONO # 0.7 (0.1-0.6); MONO % 8.9 % (1.0-6.0); PLATELET COUNT 96 10^3/uL (120.0-450.0); WHITE BLOOD COUNT 7.3 10^3/ul (4.5-11.0)
[2017-08-23 12:22] LABS: INR 0.94 (0.93-1.08); PARTIAL THROMBOPLASTIN TIME 27.2 Seconds (23.7-30.8)
[2017-08-23 12:23] LABS: ALB/GLOB RATIO 1.2 (1.1-1.8); ALKALINE PHOSPHATASE 40 U/L (38-126); ALT/SGPT 21 U/L (7-56); AST/SGOT 34 U/L (14-36); BILIRUBIN,TOTAL 0.5 mg/dL (0.2-1.3); BLOOD UREA NITROGEN 13 mg/dL (7-21); CALCIUM 8.7 mg/dL (8.4-10.5); CARBON DIOXIDE 25 mmol/L (21-33); CHLORIDE 108 mmol/L (98-107); GFR AFRICAN-AMERICAN > 60; GLUCOSE,RANDOM 79 mg/dL (70-110); POTASSIUM 4.4 mmol/L (3.6-5.0); SODIUM 140 mmol/L (132-148); TOTAL PROTEIN 7.2 g/dL (5.8-8.3)
[2017-08-23 12:35] LABS: TROPONIN I < 0.01 ng/mL
--- NOTE | 2017-08-23 13:13 | RAD ---
HISTORY: dyspepsia COMPARISON: 10/31/2014 FINDINGS: LUNGS: The lungs are well inflated and clear. PLEURA: No significant pleural effusion identified, no pneumothorax apparent. CARDIOVASCULAR: Normal. OSSEOUS STRUCTURES: No significant abnormalities. VISUALIZED UPPER ABDOMEN: Normal. OTHER FINDINGS: None. IMPRESSION: No active disease.
--- NOTE | 2017-08-23 15:06 | CP.PCM.HP ---
<Luisa Schmitz - Last Filed: 08/23/17 16:30> History of Present Illness - History of Present Illness History of Present Illness: 42 year old female with a past medical history of SVT (post- ), anemia, cervical radiculopathy, and esophageal reflux who presents in to [facility] for diagnostic testing in regards to the latter two. She admits to reflux -like symptoms since 2007 that she takes Zantac and Prilosec for symptomatic relief. She does not take these medications appropriately, or regularly. She states she has also lost a couple of pounds in the past few months. She appears healthy as a horse and is jugging down ice chips at the moment. She denies any hematemesis, blood in stool, or other alarm symptoms. She states that her PMD, or his office staff, told her to go to ER because she told them she was having trouble swallowing. She is fairly evasive. She also adds that her father of esophageal cancer. She also complains that her upper extremities fall asleep on her intermittently, though she denies weakness in relation to her upper extremities or shoulder. PMD: Dr. Ross Torres PSH: Social: Two children, drinks wine, smokes 5-10 cigarettes a day Present on Admission - Present on Admission Any Indicators Present on Admission: No Review of Systems - Constitutional Constitutional: As Per HPI Past Patient History - Infectious Disease Hx of Infectious Diseases: None - Tetanus Immunizations Tetanus Immunization: Unknown - Past Social History Smoking Status: Light Smoker < 10 Cigarettes Daily - CARDIAC Hx Cardiac Disorders: Yes Hx Cardia Arrhythmia: Yes (SVT) - PULMONARY Hx Respiratory Disorders: No - NEUROLOGICAL Hx Neurological Disorder: No - HEENT Hx HEENT Problems: No - RENAL Hx Chronic Kidney Disease: No - ENDOCRINE/METABOLIC Hx Endocrine Disorders: No Hx Diabetes Mellitus Type 2: (family Hx: Maternal side) - HEMATOLOGICAL/ONCOLOGICAL Hx Blood Disorders: Yes Hx Anemia: Yes (with blood transfusions) Hx Blood Transfusions: Yes (last one week of 08/14/2017) - INTEGUMENTARY Hx Dermatological Problems: No - MUSCULOSKELETAL/RHEUMATOLOGICAL Hx Musculoskeletal Disorders: No Hx Falls: No Hx Unsteady Gait: No - GASTROINTESTINAL Hx Gastrointestinal Disorders: No - GENITOURINARY/GYNECOLOGICAL Hx Genitourinary Disorders: No - PSYCHIATRIC Hx Psychophysiologic Disorder: Yes Hx Anxiety: Yes Hx Substance Use: No - SURGICAL HISTORY Hx Hysterectomy: No (piece of uterus, right fallopian tube) Other/Comment: breast reduction. 2 C-sections - ANESTHESIA Hx Anesthesia: Yes Hx Anesthesia Reactions: No Hx Malignant Hyperthermia: No Meds Allergies/Adverse Reactions: Allergies Allergy/AdvReac Type Severity Reaction Status Date / Time No Known Allergies Allergy Verified 08/23/17 10:48 Physical Exam - Constitutional Appears: Well, Non-toxic, No Acute Distress - Head Exam Head Exam: ATRAUMATIC, NORMOCEPHALIC - Eye Exam Eye Exam: EOMI, Normal appearance, PERRL - ENT Exam ENT Exam: Mucous Membranes Moist, Normal Oropharynx - Neck Exam Neck exam: Positive for: Normal Inspection - Respiratory Exam Respiratory Exam: Clear to Auscultation Bilateral, NORMAL BREATHING PATTERN. absent: Decreased Breath Sounds - Cardiovascular Exam Cardiovascular Exam: RRR, +S1, +S2 - GI/Abdominal Exam GI & Abdominal Exam: Normal Bowel Sounds, Soft. absent: Guarding, Rebound - Extremities Exam Extremities exam: Positive for: normal capillary refill, normal inspection, pedal pulses present. Negative for: joint swelling - Back Exam Back exam: NORMAL INSPECTION. absent: CVA tenderness (L), CVA tenderness (R) - Neurological Exam Neurological exam: Alert, CN II-XII Intact, Oriented x3 - Psychiatric Exam Psychiatric exam: Normal Affect, Normal Mood - Skin Skin Exam: Dry, Intact, Normal Color, Warm Results - Vital Signs Recent Vital Signs: Last Vital Signs Temp 98.2 F 08/23/17 10:55 Pulse 69 08/23/17 14:56 Resp 17 08/23/17 14:56 BP 109/65 08/23/17 14:56 Pulse Ox 100 08/23/17 14:56 - Labs Result Diagrams: 08/23/17 12:07 08/23/17 12:07 Assessment & Plan - Assessment and Plan (Free Text) Assessment: 42 year old female with reflux and dysphagia and some UE numbness 1) Dysphagia and reflux - GI consulted - Protonix 40 mg IVP -Dysphagia diet 2) Microcytic Anemia - Continue with home iron - Vitamin B12 and folic acid 3) Cervical Radiculopathy - Dexamethasone 4 mg IVP q8h - Gabapentin 300 mg HS - Neurosurgery consulted - Date & Time Date: 08/23/17 Time: 15:35 <Seth Alonzo - Last Filed: 08/23/17 18:05> Results - Vital Signs Recent Vital Signs: Last Vital Signs Temp 98.2 F 08/23/17 16:00 Pulse 66 08/23/17 16:00 Resp 20 08/23/17 16:00 BP 109/71 08/23/17 16:00 Pulse Ox 97 08/23/17 16:00 - Labs Result Diagrams: 08/23/17 12:07 08/23/17 12:07 Attending/Attestation - Attestation I have personally seen and examined this patient.: Yes I have fully participated in the care of the patient.: Yes I have reviewed all pertinent clinical information: Yes Notes (Text): 08/23/17 17:58 attending note; Patient seen and examined with resident in ER. Patient is a 42 year old female with a past medical history of SVT (post-), anemia due to menorrhagia , cervical radiculopathy, and esophageal reflux who presents in to [facility] for worsening dysphagia. Patient was recently admitted in the hospital treated with blood transfusion and iron infusion for anemia. Patient currently complaining of food stuck in the middle of chest. Denies any hematemesis. Denies any melenotic stool. Possible GERD. GI evaluation requested. History of cervical disc herniation. Patient was evaluated by neurosurgery. Okay for EGD if needed. Plan for neurosurgery once GI problem is resolved. history of anxiety. History of SVT in the past resolved. No active cardiac issues. active smoking; smoking cessation is strongly advised. Patient denies alcohol abuse. Denies drug abuse. Patient will follow up with PMD after discharge.
[2017-08-23 15:25] VITALS: BMI 35.9
--- NOTE | 2017-08-23 16:41 | CP.PCM.PN ---
Subjective - Date & Time of Evaluation Date of Evaluation: 08/23/17 Time of Evaluation: 16:36 - Subjective Subjective: well known to us has c4/5 HNP with signs of early myelopathy Refused surgery when seen last week now arrives with c/o difficulty swallowing cannot relate this to HNP Recommend eval and treat this new problem prior to any cervical surgery as the operation on her spine will compound this problem, as we often see patients after this surgery complain of problems swollowing and the feeling that food is trapped in their throats. IF EGD is necessary please be aware of spine issue and use care when flexing and extending her neck contact us after the swallowing issue is resolved and we will again offer surgery to her Objective - Vital Signs/Intake and Output Vital Signs (last 24 hours): Temp Pulse Resp BP Pulse Ox 98.2 F 82 17 128/72 98 08/23/17 15:56 08/23/17 15:56 08/23/17 15:56 08/23/17 15:56 08/23/17 15:56 - Medications Medications: Current Medications Cyanocobalamin (Vitamin B12 1000 Mcg Tab) 1,000 mcg PO DAILY [facility] Dexamethasone (Decadron Inj) 4 mg IVP Q8 [facility] Folic Acid (Folic Acid) 1 mg PO DAILY [facility] Gabapentin (Neurontin) 300 mg PO HS [facility] PRN Reason: Protocol Pantoprazole Sodium (Protonix Inj) 40 mg IVP DAILY [facility] - Labs Labs: PT 10.2 Seconds (9.9-11.8) 08/23/17 12:07 INR 0.94 (0.93-1.08) 08/23/17 12:07 APTT 27.2 Seconds (23.7-30.8) 08/23/17 12:07
[2017-08-23] MEDS: Dexamethasone 4 mg/1 ml IVP SCH (18:06)
[2017-08-23 22:51] LABS: PH,URINE 6.5 (4.7-8.0); URINE BILIRUBIN NEGATIVE (NEGATIVE); URINE BLOOD NEGATIVE (NEGATIVE); URINE GLUCOSE (UA) NEGATIVE (NEGATIVE); URINE KETONE NEGATIVE (NEGATIVE); URINE LEUKOCYTE ESTERASE SMALL Leu/uL (NEGATIVE); URINE PROTEIN NEGATIVE mg/dL (<30 mg/dL); URINE UROBILINOGEN 0.2 E.U./dL (<1 E.U./dL)
[2017-08-23 23:04] LABS: URINE APPEARANCE CLEAR (CLEAR); URINE COLOR YELLOW (YELLOW)
[2017-08-23 23:15] LABS: URINE BACTERIA MOD (NEG)
[2017-08-24] MEDS: Dexamethasone 4 mg/1 ml IVP SCH ×4 (00:03→21:17)
[2017-08-24] MEDS: Pantoprazole 40 mg EC Tab PO SCH (06:15)
[2017-08-24] MEDS ORDERED: Acetaminophen 650mg/20.3ml solution UD PO ONE (06:15)
[2017-08-24 07:17] LABS: BLOOD UREA NITROGEN 8 mg/dL (7-21); CARBON DIOXIDE 19 mmol/L (21-33); CHLORIDE 108 mmol/L (95-110); GFR AFRICAN-AMERICAN > 60; GLUCOSE,RANDOM 169 mg/dL (70-110); POTASSIUM 4.3 mmol/L (3.6-5.0); SODIUM 139 mmol/L (132-148)
[2017-08-24 08:01] LABS: HEMATOCRIT 34.4 % (36.0-48.0); MEAN CELL VOLUME 61.5 fl (80.0-105.0); MEAN CORPUSCULAR HEMOGLOBIN 17.9 pg (25.0-35.0); MEAN CORPUSCULAR HGB CONC 29.1 g/dl (31.0-37.0); PLATELET COUNT 125 10^3/uL (120.0-450.0); RED CELL DISTRIBUTION WIDTH 31.1 % (11.5-14.5); WHITE BLOOD COUNT 7.4 10^3/ul (4.5-11.0)
[2017-08-24] MEDS ORDERED: Barium Sulfate for Susp 98% w/w 340g Bottle ONE (14:04)
[2017-08-24] MEDS ORDERED: Barium Sulfate for Susp 96% w/w 176g Bottle PR ONE (14:04)
--- NOTE | 2017-08-24 15:29 | RAD ---
HISTORY: Dysphagia. COMPARISON: None. TECHNIQUE: A barium esophagram was performed using single and double contrast techniques for evaluation of dysphagia both liquids and solids. There is no prior comparison available. FINDINGS: Patient tolerated procedure well. ESOPHAGUS: Esophageal mucosa appeared preserved. There is no evidence of a constricting or obstructing lesion or suspicious filling defect or contrast collection throughout the esophagus in general. Occasional esophago esophageal reflux was identified from the distal to mid esophagus. HIATAL HERNIA: There is a mild hiatal hernia identified, sliding type. GASTROESOPHAGEAL REFLUX: Not demonstrated. OTHER FINDINGS: None. IMPRESSION: 1. Mild soft gallstones reflux without esophagitis appreciated. 2. Small sliding hiatal hernia identified. 3. Remaining examination appears within normal limits.
--- NOTE | 2017-08-24 15:43 | CP.PCM.PN ---
<Stephanie Grajeda - Last Filed: 08/24/17 16:01> Subjective - Date & Time of Evaluation Date of Evaluation: 08/24/17 Time of Evaluation: 10:00 - Subjective Subjective: Hospitalist Service Progress Note: Patient seen and examined at bedside. Per nursing no acute events overnight. Patient is doing well, reports still having dysphagia. Describes feeling like "something is stuck in my chest". Currently tolerated liquids. Has intermittent tingling in fingers and arms. Offers no other complaints at this time. Denies odynophagia, headaches, dizziness, cp, palpitations, sob, urinary symptoms. Objective - Vital Signs/Intake and Output Vital Signs (last 24 hours): Temp Pulse Resp BP Pulse Ox 98.2 F 58 L 18 141/67 100 08/24/17 08:00 08/24/17 08:00 08/24/17 08:00 08/24/17 08:00 08/24/17 08:00 Intake and Output: 08/24/17 08/24/17 06:59 18:59 Intake Total 820 600 Balance 820 600 - Medications Medications: Current Medications Cyanocobalamin (Vitamin B12 1000 Mcg Tab) 1,000 mcg PO DAILY [facility] Last Admin: 08/24/17 09:57 Dose: 1,000 mcg Dexamethasone (Decadron Inj) 4 mg IVP Q8 [facility] Last Admin: 08/24/17 15:11 Dose: 4 mg Folic Acid (Folic Acid) 1 mg PO DAILY [facility] Last Admin: 08/24/17 09:57 Dose: 1 mg Gabapentin (Neurontin) 300 mg PO HS [facility] PRN Reason: Protocol Last Admin: 08/23/17 22:01 Dose: 300 mg Nicotine (Nicoderm Cq) 1 patch TD DAILY [facility] Last Admin: 08/24/17 12:32 Dose: 1 patch Pantoprazole Sodium (Protonix Ec Tab) 40 mg PO 0600 [facility] Last Admin: 08/24/17 06:15 Dose: 40 mg - Labs Labs: 08/24/17 07:48 08/24/17 07:04 PT 10.2 Seconds (9.9-11.8) 08/23/17 12:07 INR 0.94 (0.93-1.08) 08/23/17 12:07 APTT 27.2 Seconds (23.7-30.8) 08/23/17 12:07 - Constitutional Appears: Well, No Acute Distress - Head Exam Head Exam: ATRAUMATIC, NORMAL INSPECTION - Eye Exam Eye Exam: EOMI, Normal appearance Pupil Exam: NORMAL ACCOMODATION - ENT Exam ENT Exam: Mucous Membranes Moist - Neck Exam Neck Exam: Full ROM - Respiratory Exam Respiratory Exam: Clear to Ausculation Bilateral, NORMAL BREATHING PATTERN. absent: Rales, Rhonchi, Wheezes - Cardiovascular Exam Cardiovascular Exam: REGULAR RHYTHM, +S1, +S2 - GI/Abdominal Exam GI & Abdominal Exam: Soft, Normal Bowel Sounds. absent: Guarding, Rigid, Tenderness - Extremities Exam Extremities Exam: Full ROM, Normal Inspection - Back Exam Back Exam: NORMAL INSPECTION - Neurological Exam Neurological Exam: Alert, Awake, CN II-XII Intact, Oriented x3 - Psychiatric Exam Psychiatric exam: Normal Affect, Normal Mood - Skin Skin Exam: Dry, Normal Color, Warm Assessment and Plan - Assessment and Plan (Free Text) Assessment: 42 year old female with hx of SVT(dx ), anemia likely 2/2 menorrhagia , anxiety, esophageal reflux presents with worsening dysphagia and UE numbness/ tingling Plan: 1. Dysphagia and Gastroesophageal reflux -F/U esophageal xray -Dysphagia diet -Protonix 40mg PO -GI consulted, f/u recommendations 2. Microcytic Anemia - Previously admitted for symptomatic anemia last week - Hgb was 5.9, s/p 2 units PRBCs - Hgb stable at 10.0 today - Contiue Vitamin B12 and folic acid - Continue Ferrous sulfate 3. Cervical Disc herniation with Radiculopathy - Dexamethasone 4 mg IVP q8h - Gabapentin 300 mg HS - Neurosurgery consulted 4. Tobacco abuse -Nicotine patch ordered -Tobacco cessation encouraged -UDS + cannabinoids 5. Hx of SVTs -Last episode was in April 2017 -Continue to monitor 6. GI/DVT ppx -Protonix 40mg PO -SCDs <Julia Burgess - Last Filed: 08/24/17 17:13> Objective - Vital Signs/Intake and Output Vital Signs (last 24 hours): Temp Pulse Resp BP Pulse Ox 98.2 F 58 L 18 141/67 100 08/24/17 08:00 08/24/17 08:00 08/24/17 08:00 08/24/17 08:00 08/24/17 08:00 Intake and Output: 08/24/17 08/24/17 06:59 18:59 Intake Total 820 600 Balance 820 600 - Medications Medications: Current Medications Cyanocobalamin (Vitamin B12 1000 Mcg Tab) 1,000 mcg PO DAILY [facility] Last Admin: 08/24/17 09:57 Dose: 1,000 mcg Dexamethasone (Decadron Inj) 4 mg IVP Q8 [facility] Last Admin: 08/24/17 15:11 Dose: 4 mg Ferrous Sulfate (Feosol) 324 mg PO DAILY [facility] Last Admin: 08/24/17 16:08 Dose: 324 mg Folic Acid (Folic Acid) 1 mg PO DAILY [facility] Last Admin: 08/24/17 09:57 Dose: 1 mg Gabapentin (Neurontin) 300 mg PO HS [facility] PRN Reason: Protocol Last Admin: 08/23/17 22:01 Dose: 300 mg Nicotine (Nicoderm Cq) 1 patch TD DAILY [facility] Last Admin: 08/24/17 12:32 Dose: 1 patch Pantoprazole Sodium (Protonix Ec Tab) 40 mg PO 0600 [facility] Last Admin: 08/24/17 06:15 Dose: 40 mg - Labs Labs: 08/24/17 07:48 08/24/17 07:04 PT 10.2 Seconds (9.9-11.8) 08/23/17 12:07 INR 0.94 (0.93-1.08) 08/23/17 12:07 APTT 27.2 Seconds (23.7-30.8) 08/23/17 12:07 Attending/Attestation - Attestation I have personally seen and examined this patient.: Yes I have fully participated in the care of the patient.: Yes I have reviewed all pertinent clinical information, including history, physical exam and plan: Yes Notes (Text): I have seen and examined the patient at bedside. Agree with the above note with the following additions/ exceptions: Briefly this is 42 year old female with a past medical history of recurrent SVT, anemia due to menorrhagia, cervical radiculopathy, and esophageal reflux who came for evaluation of worsening of dysphagia to solids and liquids. Patient denies odynophagia and states that there is difficulty initiating a swallow and its is accompanied by coughing, choking, regurgitation and sensation of residual food remaining in the esophagus. Also admits to unintentional 20 pounds weight loss in 6 months. Will order barium swallow. GI eval requested for possible endoscopy. For cervical disc herniation, she was evaluated by NS and it was recommended follow up with NS as an outpatient. Tobacco cessation counselling advised. Upon discharge patient will follow up with Dr Torres. Dr Julia Burgess.
--- NOTE | 2017-08-24 15:54 | CARD ---
APPROVED REPORT EKG Measurement Heart [id number] <Conclusion> Normal sinus rhythm Normal ECG
[2017-08-24] MEDS: Simethicone 80 mg Chewtab PO PRN (21:17)
--- NOTE | 2017-08-25 04:49 | CON ---
GASTROENTEROLOGY CONSULTATION DATE OF CONSULT: 08/24/2017 REQUESTING PHYSICIAN: Seth Alonzo MD REASON FOR CONSULT: I have been asked to see this 42-year-old female with increasing dysphagia over the last several days. She has been having difficulty swallowing both solids and liquids. She conveyed these symptoms to her primary medical doctor, who advised her to go to the emergency room. The patient states that she has lost approximately 5 pounds in the last several weeks. Her father apparently from esophageal cancer. The patient states that the food apparently sticks in her substernal area. She has had reflux symptoms for many years and has taken PPI and H2 tiffanie intermittently. She denies any hematemesis, melena, or rectal bleeding. PAST MEDICAL HISTORY: Notable for cervical radiculopathy, GERD, anemia, and SVT. SOCIAL HISTORY: She consumes alcohol on a social basis. She smokes up to a half pack of cigarettes per day. FAMILY HISTORY: Notable for father with esophageal cancer. REVIEW OF SYSTEMS: A 14-point review of systems is notable for dysphagia to solids and liquids and 5-pound weight loss. PHYSICAL EXAMINATION: GENERAL: Well-developed, anxious-appearing female, sitting up in bed in no acute distress. VITAL SIGNS: Reveal temperature of 98.2, blood pressure 141/67, heart rate of 58. HEENT: Reveal sclerae to be white. Conjunctivae pink. NECK: Supple. CHEST/LUNGS: Clear. HEART: Exam reveals a regular rate and rhythm. ABDOMEN: Soft and nontender. EXTREMITIES: Show no edema. LABORATORY DATA: Reveal white blood cell count 7.4, hemoglobin of 10. Chemistries reveal bicarbonate of 19, blood sugar 169. AST, ALT, and alk phos were all normal. IMPRESSION: She is 42-year-old female with progressively worsening dysphagia to both solids and liquids associated with 5-pound weight loss. The patient has longstanding history of gastroesophageal reflux disease, for which she has taken PPI and H2 blockers. RECOMMENDATIONS: 1. I will request an esophagram. 2. I will schedule the patient for an upper endoscopy for tomorrow. Abilio Herbert MD [facility] # [id number]
[2017-08-25] MEDS: Dexamethasone 4 mg/1 ml IVP SCH ×2 (06:08→16:27)
[2017-08-25] MEDS: Pantoprazole 40 mg EC Tab PO SCH (06:09)
[2017-08-25] MEDS: Simethicone 80 mg Chewtab PO PRN ×2 (06:09→16:29)
[2017-08-25 07:47] LABS: BASO # 0.02 K/mm3 (0.0-2.0); BASO % 0.2 % (0.0-3.0); GRAN # 7.25 (1.4-6.5); GRAN % 75.4 % (50.0-68.0); HEMATOCRIT 31.7 % (36.0-48.0); LYMPH # 1.7 (1.2-3.4); LYMPH % 17.8 % (22.0-35.0); MEAN CELL VOLUME 61.1 fl (80.0-105.0); MEAN CORPUSCULAR HEMOGLOBIN 17.9 pg (25.0-35.0); MEAN CORPUSCULAR HGB CONC 29.3 g/dl (31.0-37.0); MONO # 0.6 (0.1-0.6); MONO % 6.6 % (1.0-6.0); PLATELET COUNT 124 10^3/uL (120.0-450.0); RED CELL DISTRIBUTION WIDTH 31.6 % (11.5-14.5); WHITE BLOOD COUNT 9.6 10^3/ul (4.5-11.0)
[2017-08-25 07:58] LABS: BLOOD UREA NITROGEN 10 mg/dL (7-21); CARBON DIOXIDE 22 mmol/L (21-33); CHLORIDE 109 mmol/L (95-110); GFR AFRICAN-AMERICAN > 60; GLUCOSE,RANDOM 89 mg/dL (70-110); POTASSIUM 4.2 mmol/L (3.6-5.0); SODIUM 142 mmol/L (132-148)
[2017-08-25] MEDS ORDERED: Propofol 10 mg/ml Inj (20 ML) ONE (13:04)
--- NOTE | 2017-08-25 13:31 | CP.PCM.PN ---
<Stephanie Grajeda - Last Filed: 08/25/17 13:47> Subjective - Date & Time of Evaluation Date of Evaluation: 08/25/17 Time of Evaluation: 07:20 - Subjective Subjective: Hospitalist Service Progress Note: Patient seen and examined at bedside. Per nursing, no acute events overnight. Patient is NPO for EGD today. Offers no complaints. Tolerating liquids, still no BM. States that she would like to receive treatment for BV that was diagnosed by [facility]GE[facility]. Also requesting endometrial bx be done while she is in the hospital. Denies headache, dizziness, cp, palpitations, sob, urinary symptoms. Objective - Vital Signs/Intake and Output Vital Signs (last 24 hours): Temp Pulse Resp BP Pulse Ox 98.5 F 65 19 108/66 100 08/25/17 13:09 08/25/17 13:09 08/25/17 13:09 08/25/17 13:09 08/25/17 13:09 Intake and Output: 08/25/17 08/25/17 06:59 18:59 Intake Total 600 Balance 600 - Medications Medications: Current Medications Cyanocobalamin (Vitamin B12 1000 Mcg Tab) 1,000 mcg PO DAILY [facility] Last Admin: 08/25/17 10:05 Dose: 1,000 mcg Dexamethasone (Decadron Inj) 4 mg IVP Q8 [facility] Last Admin: 08/25/17 06:08 Dose: 4 mg Ferrous Sulfate (Feosol) 324 mg PO DAILY [facility] Last Admin: 08/25/17 10:10 Dose: Not Given Folic Acid (Folic Acid) 1 mg PO DAILY [facility] Last Admin: 08/25/17 10:05 Dose: 1 mg Gabapentin (Neurontin) 300 mg PO HS [facility] PRN Reason: Protocol Last Admin: 08/24/17 21:17 Dose: 300 mg Nicotine (Nicoderm Cq) 1 patch TD DAILY [facility] Last Admin: 08/25/17 10:06 Dose: 1 patch Pantoprazole Sodium (Protonix Ec Tab) 40 mg PO 0600 [facility] Last Admin: 08/25/17 06:09 Dose: 40 mg Simethicone (Mylicon Chew Tab) 80 mg PO [facility] PRN PRN Reason: GI distress Last Admin: 08/25/17 06:09 Dose: 80 mg - Labs Labs: 08/25/17 07:41 08/25/17 07:41 PT 10.2 Seconds (9.9-11.8) 08/23/17 12:07 INR 0.94 (0.93-1.08) 08/23/17 12:07 APTT 27.2 Seconds (23.7-30.8) 08/23/17 12:07 - Constitutional Appears: Well, No Acute Distress - Head Exam Head Exam: ATRAUMATIC, NORMAL INSPECTION - Eye Exam Eye Exam: EOMI, Normal appearance Pupil Exam: NORMAL ACCOMODATION - ENT Exam ENT Exam: Mucous Membranes Moist - Neck Exam Neck Exam: Full ROM - Respiratory Exam Respiratory Exam: Clear to Ausculation Bilateral, NORMAL BREATHING PATTERN. absent: Rales, Rhonchi, Wheezes - Cardiovascular Exam Cardiovascular Exam: REGULAR RHYTHM, +S1, +S2 - GI/Abdominal Exam GI & Abdominal Exam: Soft, Tenderness, Normal Bowel Sounds. absent: Guarding, Rigid Additional comments: Mild epigastric tenderness to palpation - Extremities Exam Extremities Exam: Full ROM, Normal Inspection - Back Exam Back Exam: NORMAL INSPECTION - Neurological Exam Neurological Exam: Alert, Awake, CN II-XII Intact, Normal Gait, Oriented x3 - Psychiatric Exam Psychiatric exam: Normal Affect, Normal Mood - Skin Skin Exam: Normal Color, Warm Assessment and Plan - Assessment and Plan (Free Text) Assessment: 42 year old female with hx of SVT(dx ), anemia likely 2/2 menorrhagia , anxiety, esophageal reflux presents with worsening dysphagia and UE numbness/ tingling Plan: 1. Dysphagia and Gastroesophageal reflux -NPO for EGD today -Esophageal xray showed mild reflux no evidence of gastritis, small sliding hiatal hernia -Speech evaluated yesterday - deemed safe for advanced bite size w thin liquid diet only when cleared by GI physician. -Protonix 40mg PO -GI consulted, f/u recommendations 2. Microcytic Anemia - Previously admitted for symptomatic anemia last week - Hgb was 5.9, s/p 2 units PRBCs - Hgb stable at 9.3 today - Continue Vitamin B12 and folic acid - Continue Ferrous sulfate 3. Constipation -Will add miralax -Continue simethicone 4. Bacterial Vaginosis, Hx of Mennorhagia -Discussed with [facility] SURGEON gayla Castillo to start treatment, Metrogel ordered -Informed patient that endometrial bx is outpatient procedure 5. Cervical Disc herniation with Radiculopathy - Dexamethasone 4 mg IVP q8h - Gabapentin 300 mg HS - Neurosurgery consulted 6. Tobacco abuse -Nicotine patch ordered -Tobacco cessation encouraged -UDS + cannabinoids 7. Hx of SVTs -Last episode was in April 2017 -Continue to monitor 8. GI/DVT ppx -Protonix 40mg PO -SCDs <Julia Burgess - Last Filed: 08/28/17 18:22> Objective - Vital Signs/Intake and Output Vital Signs (last 24 hours): Temp Pulse Resp BP Pulse Ox 98.5 F 56 L 20 133/80 99 08/25/17 14:47 08/25/17 14:47 08/25/17 14:47 08/25/17 14:47 08/25/17 14:47 - Labs Labs: 08/25/17 07:41 08/25/17 07:41 PT 10.2 Seconds (9.9-11.8) 08/23/17 12:07 INR 0.94 (0.93-1.08) 08/23/17 12:07 APTT 27.2 Seconds (23.7-30.8) 08/23/17 12:07 Attending/Attestation - Attestation I have personally seen and examined this patient.: Yes I have fully participated in the care of the patient.: Yes I have reviewed all pertinent clinical information, including history, physical exam and plan: Yes Notes (Text): I have seen and examined the patient at bedside. Agree with the above note with the following additions/ exceptions: Briefly this is 42 year old female with a past medical history of recurrent SVT, anemia due to menorrhagia, cervical radiculopathy, and esophageal reflux who came for evaluation of worsening of dysphagia to solids and liquids. Patient denies odynophagia and states that there is difficulty initiating a swallow and its is accompanied by coughing, choking, regurgitation and sensation of residual food remaining in the esophagus. Also admits to unintentional 20 pounds weight loss in 6 months. Esophagogram showed mild reflux and small hiatal hernia. Patient is scheduled for endoscopy tomorrow. For cervical disc herniation, she was evaluated by NS and it was recommended follow up with NS as an outpatient. Tobacco cessation counselling advised. Upon discharge patient will follow up with Dr Torres. Dr Julia Burgess.
[2017-08-25] MEDS ORDERED: Sodium Chloride 0.9% 1,000 ML IV SCH (14:15)
[2017-08-25 14:46] VITALS: PULSE 56; RESP 20; TEMP 98.5; O2SAT 99
[2017-08-25 15:13] VITALS: BP 133/80
[2017-08-25] MEDS ORDERED: POLYETHYLENE GLYCOL 3350 17 GM/Dose PACKET PO ONE (16:03)
--- NOTE | 2017-08-25 16:37 | CP.PCM.DIS ---
<Stephanie Grajeda - Last Filed: 08/25/17 16:48> Provider - Provider Date of Admission: 08/23/17 14:04 Attending physician: Julia Burgess MD Consults: GI: Piedad Neurosurgery: Jori Time Spent in preparation of Discharge (in minutes): 31 Hospital Course - Lab Results Lab Results: Most Recent Lab Values WBC 9.6 10^3/ul (4.5-11.0) D 08/25/17 07:41 RBC 5.19 10^6/uL (3.5-6.1) 08/25/17 07:41 Hgb 9.3 g/dL (12.0-16.0) L 08/25/17 07:41 Hct 31.7 % (36.0-48.0) L 08/25/17 07:41 MCV 61.1 fl (80.0-105.0) L 08/25/17 07:41 MCH 17.9 pg (25.0-35.0) L 08/25/17 07:41 MCHC 29.3 g/dl (31.0-37.0) L 08/25/17 07:41 RDW 31.6 % (11.5-14.5) H 08/25/17 07:41 Plt Count 124 10^3/uL (120.0-450.0) 08/25/17 07:41 Manual Plt Count 114 K/mm3 (120-450) L 08/23/17 12:07 Gran % 75.4 % (50.0-68.0) H 08/25/17 07:41 Lymph % (Auto) 17.8 % (22.0-35.0) L 08/25/17 07:41 Morris % (Auto) 6.6 % (1.0-6.0) H 08/25/17 07:41 Eos % (Auto) 0.0 % (1.5-5.0) L 08/25/17 07:41 Baso % (Auto) 0.2 % (0.0-3.0) 08/25/17 07:41 Gran # 7.25 (1.4-6.5) H 08/25/17 07:41 Lymph # 1.7 (1.2-3.4) 08/25/17 07:41 Morris # 0.6 (0.1-0.6) 08/25/17 07:41 Eos # 0.0 (0.0-0.7) 08/25/17 07:41 Baso # 0.02 K/mm3 (0.0-2.0) 08/25/17 07:41 PT 10.2 Seconds (9.9-11.8) 08/23/17 12:07 INR 0.94 (0.93-1.08) 08/23/17 12:07 APTT 27.2 Seconds (23.7-30.8) 08/23/17 12:07 Sodium 142 mmol/L (132-148) 08/25/17 07:41 Potassium 4.2 mmol/L (3.6-5.0) 08/25/17 07:41 Chloride 109 mmol/L (95-110) 08/25/17 07:41 Carbon Dioxide 22 mmol/L (21-33) 08/25/17 07:41 Anion Gap 15 (10-20) 08/25/17 07:41 BUN 10 mg/dL (7-21) 08/25/17 07:41 Creatinine 0.6 mg/dL (0.5-1.4) 08/25/17 07:41 Est GFR ( Amer) > 60 08/25/17 07:41 Est GFR (Non-Af Amer) > 60 08/25/17 07:41 Random Glucose 89 mg/dL (70-110) 08/25/17 07:41 Calcium 9.0 mg/dL (8.4-10.5) 08/25/17 07:41 Total Bilirubin 0.5 mg/dL (0.2-1.3) 08/23/17 12:07 AST 34 U/L (14-36) 08/23/17 12:07 ALT 21 U/L (7-56) 08/23/17 12:07 Alkaline Phosphatase 40 U/L (38-126) 08/23/17 12:07 Lactate Dehydrogenase 447 U/L (333-699) 08/23/17 12:07 Total Creatine Kinase 55 U/L (35-230) 08/23/17 12:07 Troponin I < 0.01 ng/mL 08/23/17 12:07 Total Protein 7.2 g/dL (5.8-8.3) 08/23/17 12:07 Albumin 3.9 g/dL (3.0-4.8) 08/23/17 12:07 Globulin 3.3 gm/dL 08/23/17 12:07 Albumin/Globulin Ratio 1.2 (1.1-1.8) 08/23/17 12:07 Urine Color Yellow (YELLOW) 08/23/17 22:30 Urine Appearance Clear (CLEAR) 08/23/17 22:30 Urine pH 6.5 (4.7-8.0) 08/23/17 22:30 Ur Specific Cisco 1.020 (1.005-1.035) 08/23/17 22:30 Urine Protein Negative mg/dL (<30 mg/dL) 08/23/17 22:30 Urine Glucose (UA) Negative mg/dL (NEGATIVE) 08/23/17 22:30 Urine Ketones Negative mg/dL (NEGATIVE) 08/23/17 22:30 Urine Blood Negative (NEGATIVE) 08/23/17 22:30 Urine Nitrate Negative (NEGATIVE) 08/23/17 22:30 Urine Bilirubin Negative (NEGATIVE) 08/23/17 22:30 Urine Urobilinogen 0.2 E.U./dL (<1 E.U./dL) 08/23/17 22:30 Ur Leukocyte Esterase Small Laila/uL (NEGATIVE) H 08/23/17 22:30 Urine RBC 2 - 5 /hpf (0-2) 08/23/17 22:30 Urine WBC 5 - 10 /hpf (0-6) 08/23/17 22:30 Ur Epithelial Cells 6 - 8 /hpf (0-5) 08/23/17 22:30 Urine Bacteria Mod (NEG) 08/23/17 22:30 Urine HCG, Qual Negative (NEGATIVE) 08/24/17 13:39 Urine Opiates Screen Negative (NEGATIVE) 08/23/17 22:30 Urine Methadone Screen Negative (NEGATIVE) 08/23/17 22:30 Ur Barbiturates Screen Negative (NEGATIVE) 08/23/17 22:30 Ur Phencyclidine Scrn Negative (NEGATIVE) 08/23/17 22:30 Ur Amphetamines Screen Negative (NEGATIVE) 08/23/17 22:30 U Benzodiazepines Scrn Negative (NEGATIVE) 08/23/17 22:30 U Oth Cocaine Metabols Negative (NEGATIVE) 08/23/17 22:30 U Cannabinoids Screen Positive (NEGATIVE) H 08/23/17 22:30 Alcohol, Quantitative < 10 mg/dL (0-10) 08/23/17 12:07 - Hospital Course Hospital Course: 42 year old female with a past medical history of recurrent SVT , anemia due to menorrhagia, cervical radiculopathy, and esophageal reflux who came for evaluation of worsening of dysphagia to solids and liquids. Patient reports that she has been having dysphagia since 2007 however it has recently gotten worse. Patient denies odynophagia and states that there is difficulty initiating a swallow and its is accompanied by coughing, choking, regurgitation and sensation of residual food remaining in the esophagus. Patient also states to have had an unintentional 15-20 pounds weight loss in 6 months. Patient was seen by neurosurgery who recommended patient to follow up as an outpatient. Esophageal xray showed small hiatal hernia with mild reflux, no esophagitis. Was evaluated by Speech and Swallow to determine safest food consistency. Patient was taken for EGD which showed small hiatal hernia, patient tolerated the procedure well. Patient has a history of anemia due to menorrhagia, was started on ferrous sulfate, hgb was stable. Informed patient that she will need to follow up with CLINICAL PATHOLOGIST as an outpatient for further management. Patient was given miralax for constipation.Patient is a smoker and was given a nicotine patch during this admission, tobacco cessation counseling advised. Prescriptions for Ferrous sulfate, protonix, and metrogel were given. Reflux precautions given. Patient to follow up with GI and PMD within 1 week. All questions and concerns were addressed. Discharge Exam - Head Exam Head Exam: ATRAUMATIC, NORMAL INSPECTION - Eye Exam Eye Exam: EOMI, Normal appearance Pupil Exam: NORMAL ACCOMODATION, PERRL - Neck Exam Neck exam: Full Rom - Respiratory Exam Respiratory Exam: Clear to PA & Lateral, NORMAL BREATHING PATTERN, UNREMARKABLE. absent: Rales, Rhonchi, Wheezes - Cardiovascular Exam Cardiovascular Exam: REGULAR RHYTHM, +S1, +S2 - GI/Abdominal Exam GI & Abdominal Exam: Normal Bowel Sounds, Soft, Tenderness. absent: Guarding, Rebound, Rigid Additional comments: Mild epigastric tenderness to palpation - Extremities Exam Extremities exam: normal inspection - Back Exam Back exam: NORMAL INSPECTION - Neurological Exam Neurological exam: Alert, CN II-XII Intact, Oriented x3 - Psychiatric Exam Psychiatric exam: Normal Affect, Normal Mood - Skin Skin Exam: Normal Color, Warm Discharge Plan - Discharge Medications Prescriptions: Ferrous Sulfate 325 mg PO DAILY #30 tablet Metronidazole [Metrogel-Vaginal] 1 ea VG DAILY 5 Days #1 gel Pantoprazole [Protonix] 40 mg PO DAILY #30 ect - Follow Up Plan Condition: FAIR Disposition: HOME/ ROUTINE Instructions: How to Stop Smoking (DC), Hiatal Hernia (GEN), Iron Rich Diet (DC ), Cigarette Smoking and Your Health (GEN), Regular Diet (GEN) Additional Instructions: Patient is clear for discharge, to follow up with GI within 1 week. Patient also to follow up with CLINICAL PATHOLOGIST as an outpatient. Prescriptions for Protonix, Ferrous sulfate, and metrogel given. Patient states that she has an appt with Neurosurgery on September 03. <Julia Burgess - Last Filed: 08/28/17 18:24> Provider - Provider Date of Admission: 08/23/17 14:04 Attending physician: Julia Burgess MD Time Spent in preparation of Discharge (in minutes): 35 Hospital Course - Lab Results Lab Results: Most Recent Lab Values WBC 9.6 10^3/ul (4.5-11.0) D 08/25/17 07:41 RBC 5.19 10^6/uL (3.5-6.1) 08/25/17 07:41 Hgb 9.3 g/dL (12.0-16.0) L 08/25/17 07:41 Hct 31.7 % (36.0-48.0) L 08/25/17 07:41 MCV 61.1 fl (80.0-105.0) L 08/25/17 07:41 MCH 17.9 pg (25.0-35.0) L 08/25/17 07:41 MCHC 29.3 g/dl (31.0-37.0) L 08/25/17 07:41 RDW 31.6 % (11.5-14.5) H 08/25/17 07:41 Plt Count 124 10^3/uL (120.0-450.0) 08/25/17 07:41 Manual Plt Count 114 K/mm3 (120-450) L 08/23/17 12:07 Gran % 75.4 % (50.0-68.0) H 08/25/17 07:41 Lymph % (Auto) 17.8 % (22.0-35.0) L 08/25/17 07:41 Morris % (Auto) 6.6 % (1.0-6.0) H 08/25/17 07:41 Eos % (Auto) 0.0 % (1.5-5.0) L 08/25/17 07:41 Baso % (Auto) 0.2 % (0.0-3.0) 08/25/17 07:41 Gran # 7.25 (1.4-6.5) H 08/25/17 07:41 Lymph # 1.7 (1.2-3.4) 08/25/17 07:41 Morris # 0.6 (0.1-0.6) 08/25/17 07:41 Eos # 0.0 (0.0-0.7) 08/25/17 07:41 Baso # 0.02 K/mm3 (0.0-2.0) 08/25/17 07:41 PT 10.2 Seconds (9.9-11.8) 08/23/17 12:07 INR 0.94 (0.93-1.08) 08/23/17 12:07 APTT 27.2 Seconds (23.7-30.8) 08/23/17 12:07 Sodium 142 mmol/L (132-148) 08/25/17 07:41 Potassium 4.2 mmol/L (3.6-5.0) 08/25/17 07:41 Chloride 109 mmol/L (95-110) 08/25/17 07:41 Carbon Dioxide 22 mmol/L (21-33) 08/25/17 07:41 Anion Gap 15 (10-20) 08/25/17 07:41 BUN 10 mg/dL (7-21) 08/25/17 07:41 Creatinine 0.6 mg/dL (0.5-1.4) 08/25/17 07:41 Est GFR ( Amer) > 60 08/25/17 07:41 Est GFR (Non-Af Amer) > 60 08/25/17 07:41 Random Glucose 89 mg/dL (70-110) 08/25/17 07:41 Calcium 9.0 mg/dL (8.4-10.5) 08/25/17 07:41 Total Bilirubin 0.5 mg/dL (0.2-1.3) 08/23/17 12:07 AST 34 U/L (14-36) 08/23/17 12:07 ALT 21 U/L (7-56) 08/23/17 12:07 Alkaline Phosphatase 40 U/L (38-126) 08/23/17 12:07 Lactate Dehydrogenase 447 U/L (333-699) 08/23/17 12:07 Total Creatine Kinase 55 U/L (35-230) 08/23/17 12:07 Troponin I < 0.01 ng/mL 08/23/17 12:07 Total Protein 7.2 g/dL (5.8-8.3) 08/23/17 12:07 Albumin 3.9 g/dL (3.0-4.8) 08/23/17 12:07 Globulin 3.3 gm/dL 08/23/17 12:07 Albumin/Globulin Ratio 1.2 (1.1-1.8) 08/23/17 12:07 Urine Color Yellow (YELLOW) 08/23/17 22:30 Urine Appearance Clear (CLEAR) 08/23/17 22:30 Urine pH 6.5 (4.7-8.0) 08/23/17 22:30 Ur Specific Cisco 1.020 (1.005-1.035) 08/23/17 22:30 Urine Protein Negative mg/dL (<30 mg/dL) 08/23/17 22:30 Urine Glucose (UA) Negative mg/dL (NEGATIVE) 08/23/17 22:30 Urine Ketones Negative mg/dL (NEGATIVE) 08/23/17 22:30 Urine Blood Negative (NEGATIVE) 08/23/17 22:30 Urine Nitrate Negative (NEGATIVE) 08/23/17 22:30 Urine Bilirubin Negative (NEGATIVE) 08/23/17 22:30 Urine Urobilinogen 0.2 E.U./dL (<1 E.U./dL) 08/23/17 22:30 Ur Leukocyte Esterase Small Laila/uL (NEGATIVE) H 08/23/17 22:30 Urine RBC 2 - 5 /hpf (0-2) 08/23/17 22:30 Urine WBC 5 - 10 /hpf (0-6) 08/23/17 22:30 Ur Epithelial Cells 6 - 8 /hpf (0-5) 08/23/17 22:30 Urine Bacteria Mod (NEG) 08/23/17 22:30 Urine HCG, Qual Negative (NEGATIVE) 08/24/17 13:39 Urine Opiates Screen Negative (NEGATIVE) 08/23/17 22:30 Urine Methadone Screen Negative (NEGATIVE) 08/23/17 22:30 Ur Barbiturates Screen Negative (NEGATIVE) 08/23/17 22:30 Ur Phencyclidine Scrn Negative (NEGATIVE) 08/23/17 22:30 Ur Amphetamines Screen Negative (NEGATIVE) 08/23/17 22:30 U Benzodiazepines Scrn Negative (NEGATIVE) 08/23/17 22:30 U Oth Cocaine Metabols Negative (NEGATIVE) 08/23/17 22:30 U Cannabinoids Screen Positive (NEGATIVE) H 08/23/17 22:30 Alcohol, Quantitative < 10 mg/dL (0-10) 08/23/17 12:07 Attending/Attestation - Attestation I have personally seen and examined this patient.: Yes I have fully participated in the care of the patient.: Yes I have reviewed all pertinent clinical information, including history, physical exam and plan: Yes Notes (Text): I have seen and examined the patient at bedside. Agree with the above note with the following additions/ exceptions: Briefly this is 42 year old female with a past medical history of recurrent SVT, anemia due to menorrhagia, cervical radiculopathy, and esophageal reflux who came for evaluation of worsening of dysphagia to solids and liquids. Patient denies odynophagia and states that there is difficulty initiating a swallow and its is accompanied by coughing, choking, regurgitation and sensation of residual food remaining in the esophagus. Also admits to unintentional 20 pounds weight loss in 6 months. Esophagogram showed mild reflux and small hiatal hernia. Endoscopy showed small hiatal hernia. For cervical disc herniation, she was evaluated by NS and it was recommended follow up with NS as an outpatient. Tobacco cessation counselling advised. Upon discharge patient will follow up with Dr Torres. Dr Julia Burgess.
[2017-08-25] MEDS ORDERED: POLYETHYLENE GLYCOL 3350 17 GM/Dose PACKET PO SCH (18:00)
[2017-08-25] MEDS ORDERED: METRONIDAZOLE 0.75% VG SCH (22:00)
== END 2017-08-25 20:50 | disposition home or self-care (01) ==
LOC: ED 10:45 → ERH 14:04 → INTOOBSV 14:04 → ERH 14:41 → 5RSO 15:45
PROVIDERS: ADMIT Internal Medicine; ATTEND Hospitalist
DX: K21.9 Gastro-esophageal reflux disease without esophagitis (principal); R13.10 Dysphagia, unspecified; K44.9 Diaphragmatic hernia without obstruction or gangrene; D50.0 Iron deficiency anemia secondary to blood loss (chronic); N92.0 Excessive and frequent menstruation with regular cycle; N76.0 Acute vaginitis; B96.89 Other specified bacterial agents as the cause of diseases classified elsewhere; F41.9 Anxiety disorder, unspecified; M50.121 Cervical disc disorder at C4-C5 level with radiculopathy; F17.210 Nicotine dependence, cigarettes, uncomplicated; K59.00 Constipation, unspecified; Z86.79 Personal history of other diseases of the circulatory system
CPT/HCPCS: 36415; 43235; 71010; 74220; 80048; 80053; 80320; 80324; 80345; 80346; 80349; 80353; 80358; 80361; 81001; 82550; 83615; 83992; 84484; 84703; 85025; 85027; 85610; 85730; 92610; 93005; 99284; C9113; G0378; G8996; G8997; J1100; J2704; J7040

== ENCOUNTER 2018-01-18 12:23 | Observation (INO) | payer OTHER ==
[2018-01-18 12:24] VITALS: BMI 35.9
--- NOTE | 2018-01-18 12:30 | ED PDOC ---
Arrival/HPI - General Time Seen by Provider: 01/18/18 12:25 Historian: Patient - History of Present Illness Narrative History of Present Illness (Text): 01/18/18 12:29 42 y/o female, pmh including DVT/anemia due to menorrhagia/gerd, nkda, c/o fatigue/dizziness and tired for the past 2 weeks. Pt. stated that she has chronic heavy period which she is scheduled for total hysterectomy on 02/15/2018 , last period ended 01/16/2018 which lasted for 7 days with average 3-4 pads per day, suppose to be on the iron supplement 325 mg po tid but she only take it qd as she doesn't like the medication, stated that her hgb is probably around 5.9 today as this is how it feels like, admits chronic fatigue and tired , no palpitation, no chest pain or shortness of breath, no abdominal pain, no nausea or vomiting, no black stool or stool discoloration, no rash, no change in vision, no other medical or psychological complaints. Past Medical History - Provider Review Nursing Documentation Reviewed: Yes - Infectious Disease Hx of Infectious Diseases: None - Tetanus Immunization Tetanus Immunization: Unknown - Cardiac Hx Cardiac Disorders: Yes Hx Cardiac Arrhythmia: Yes (SVT) - Pulmonary Hx Respiratory Disorders: No - Neurological Hx Neurological Disorder: No - HEENT Hx HEENT Disorder: No - Renal Hx Renal Disorder: No - Endocrine/Metabolic Hx Endocrine Disorders: No Hx Diabetes Mellitus Type 2: (family Hx: Maternal side) - Hematological/Oncological Hx Blood Transfusions: Yes (last one week of 08/14/2017) Hx Blood Transfusion Reaction: No - Integumentary Hx Dermatological Disorder: No - Musculoskeletal/Rheumatological Hx Musculoskeletal Disorders: No - Gastrointestinal Hx Gastrointestinal Disorders: No - Genitourinary/Gynecological Hx Genitourinary Disorders: No - Psychiatric Hx Emotional Abuse: No Hx Physical Abuse: No Hx Substance Use: No - Surgical History Hx Hysterectomy: No (piece of uterus, right fallopian tube) Other/Comment: breast reduction. 2 C-sections - Anesthesia Hx Anesthesia Reactions: No Hx Malignant Hyperthermia: No - Suicidal Assessment Feels Threatened In Home Enviroment: No Family/Social History - Physician Review Nursing Documentation Reviewed: Yes Family/Social History: Unknown Family HX Smoking Status: Light Smoker < 10 Cigarettes Daily Hx Alcohol Use: Yes (Social: wine) Hx Substance Use: No Hx Substance Use Treatment: No Allergies/Home Meds Allergies/Adverse Reactions: Allergies No Known Allergies Allergy (Verified 08/23/17 10:48) Home Medications: Home Meds Medication Instructions Recorded Confirmed Docusate [Colace] 100 mg PO BID 01/18/18 01/18/18 Gabapentin [Neurontin] 100 mg PO DAILY 01/18/18 01/18/18 Gabapentin [Neurontin] 400 mg PO HS 01/18/18 01/18/18 Review of Systems - Review of Systems Constitutional: Fatigue. absent: Fevers Eyes: absent: Vision Changes ENT: absent: Hearing Changes Respiratory: absent: SOB, Cough Cardiovascular: absent: Chest Pain Gastrointestinal: absent: Abdominal Pain, Diarrhea, Nausea, Vomiting Skin: absent: Rash, Pruritis Neurological: Dizziness. absent: Headache Psychiatric: absent: Anxiety, Depression, Suicidal Ideation Physical Exam Vital Signs Reviewed: Yes Vital Signs Temp Pulse Resp BP Pulse Ox 01/18/18 12:39 98.7 F 94 H 18 121/75 100 Temperature: Afebrile Blood Pressure: Normal Pulse: Regular Respiratory Rate: Normal Appearance: Positive for: Well-Appearing, Non-Toxic, Ill-Appearing Pain Distress: None Mental Status: Positive for: Alert and Oriented X 3 - Systems Exam Head: Present: Atraumatic, Normocephalic Pupils: Present: PERRL Extroacular Muscles: Present: EOMI Conjunctiva: Present: Normal Mouth: Present: Moist Mucous Membranes Neck: Present: Normal Range of Motion Respiratory/Chest: Present: Clear to Auscultation, Good Air Exchange. No: Respiratory Distress, Accessory Muscle Use Cardiovascular: Present: Regular Rate and Rhythm, Normal S1, S2. No: Murmurs Abdomen: Present: Normal Bowel Sounds. No: Tenderness, Distention, Peritoneal Signs, Rebound, Guarding Rectal: Present: Other (Pt. refused rectal and guaiac exam) Genitourinary/Pelvic Exam: Present: Other (Pt. refused. ) Back: Present: Normal Inspection Upper Extremity: Present: Normal Inspection. No: Cyanosis, Edema Lower Extremity: Present: Normal Inspection. No: Edema Neurological: Present: GCS=15, CN II-XII Intact, Speech Normal, Motor Func Grossly Intact, Gait Normal, Memory Normal, Other (no drift. ) Skin: Present: Warm, Dry, Normal Color. No: Rashes Psychiatric: Present: Alert, Oriented x 3, Normal Insight, Normal Concentration Medical Decision Making ED Course and Treatment: 01/18/18 13:08 -labs/ua/type and screen -ekg -cxr -IVF -awake overnight monitor -Observe and reassess 01/18/18 14:07 -EKG: NSR @ 81 BPM, no ST elevation or depression, no T wave inversion. -Chest xray show no active disease -Beta HCG is negative -Pt. refused guaiac and pelvic exam as she said she has no GI symptoms and vaginal bleeding resolved. -Labs are non-significant except hgb 6.8 from baseline 9.3 (symptomatic anemia) , ordered 2 units of PRBC and will need admission. Pt. has no active vaginal bleeding, last menstrual cycle lasted 7 days and ended 2 days ago. -I discussed with the patient about the blood transfusion with 2 PRBC which she agreed and understands the side effect of blood transfusion as she had blood transfusion before. -Pt. is vitally stable. 01/18/18 15:02 -I spoke to the admitting team, hospitalist Dr. Vegas, discussed about the case/ labs/radiology result, agreed on the admission to his service. -I discussed with Dr. Lara about the case/labs/radiology results, agreed on the treatment and admission, he will put in the admission order to remote tele. - Lab Interpretations Lab Results: 01/18/18 13:10 01/18/18 13:10 Lab Results 01/18/18 14:00: Blood Type A POSITIVE, Antibody Screen Negative, BBK History Checked Patient has bt 01/18/18 13:10: Beta HCG, Quant < 2.39 01/18/18 13:10: WBC 7.5 D, RBC 4.36, Hgb 6.8 L* D, Hct 24.5 L, MCV 56.2 L D, MCH 15.6 L, MCHC 27.8 L, RDW 20.9 H, Plt Count 172, Gran % 57.0, Lymph % (Auto) 31.1, [place] % (Auto) 9.1 H, Eos % (Auto) 1.9, Baso % (Auto) 0.9, Gran # 4.26, Lymph # (Auto) 2.3, [place] # (Auto) 0.7 H, Eos # (Auto) 0.1, Baso # (Auto) 0.07 01/18/18 13:10: Sodium 142, Potassium 3.8, Chloride 108 H, Carbon Dioxide 24, Anion Gap 14, BUN 13, Creatinine 0.7, Est GFR ( Amer) > 60, Est GFR (Non- Af Amer) > 60, Random Glucose 88, Calcium 9.1, Total Bilirubin 0.3, AST 16, ALT 22, Alkaline Phosphatase 36 L, Total Protein 6.8, Albumin 3.8, Globulin 3.0, Albumin/Globulin Ratio 1.3 01/18/18 13:10: PT 11.0, INR 0.96, APTT 29.2 01/18/18 12:55: POC Glucose (mg/dL) 87 - RAD Interpretation Radiology Orders: 01/18/18 13:05 CHEST PORTABLE [RAD] Stat no active disease Timers Inspector: Radiologist - EKG Interpretation EKG Interpretation (Text): 01/18/18 13:09 -EKG: NSR @ 81 BPM, no ST elevation or depression, no T wave inversion. Interpreted by ED Physician: Yes Type: 12 lead EKG Comparison: Com.w/previous EKG - Medication Orders Current Medication Orders: Discontinued Medications Sodium Chloride (Sodium Chloride 0.9%) 1,000 mls @ 999 mls/hr IV .Q1H1M STA Stop: 01/18/18 14:03 Last Admin: 01/18/18 13:13 Dose: 999 mls/hr eMAR Start Stop Document 01/18/18 13:13 SE (Rec: 01/18/18 13:13 SE [id number]) Intravenous Solution Start Date 01/18/18 Start Time 13:13 - PA / VOCATIONAL CASE MANAGER / Resident Statement / has reviewed & agrees with the documentation as recorded. Disposition/Present on Arrival - Present on Arrival Any Indicators Present on Arrival: No History of DVT/PE: No History of Uncontrolled Diabetes: No Urinary Catheter: No History of Decub. Ulcer: No History Surgical Site Infection Following: None - Disposition Have Diagnosis and Disposition been Completed?: Yes Diagnosis: Menorrhagia, Symptomatic anemia Disposition: HOSPITALIZED Disposition Time: 14:12 Patient Plan: Admission, Telemetry Patient Problems: Current Active Problems Problem Status Onset Menorrhagia Acute Symptomatic anemia Acute Condition: STABLE
[2018-01-18 12:44] VITALS: O2SAT 100
[2018-01-18] MEDS ORDERED: Sodium Chloride 0.9% 1,000 ML IV STA (13:03)
[2018-01-18 13:17] LABS: BASO # 0.07 K/mm3 (0.0-2.0); BASO % 0.9 % (0.0-3.0); EOS # 0.1 (0.0-0.7); EOS % 1.9 % (1.5-5.0); GRAN # 4.26 (1.4-6.5); LYMPH # 2.3 (1.2-3.4); LYMPH % 31.1 % (22.0-35.0); MEAN CELL VOLUME 56.2 fl (80.0-105.0); MEAN CORPUSCULAR HEMOGLOBIN 15.6 pg (25.0-35.0); MEAN CORPUSCULAR HGB CONC 27.8 g/dl (31.0-37.0); MONO # 0.7 (0.1-0.6); MONO % 9.1 % (1.0-6.0); PLATELET COUNT 172 10^3/uL (120.0-450.0); RBC 4.36 10^6/uL (3.5-6.1); RED CELL DISTRIBUTION WIDTH 20.9 % (11.5-14.5); WHITE BLOOD COUNT 7.5 10^3/ul (4.5-11.0)
[2018-01-18 13:26] LABS: ALB/GLOB RATIO 1.3 (1.1-1.8); ALBUMIN 3.8 g/dL (3.0-4.8); ALT/SGPT 22 U/L (7-56); AST/SGOT 16 U/L (14-36); BLOOD UREA NITROGEN 13 mg/dL (7-21); CALCIUM 9.1 mg/dL (8.4-10.5); GFR AFRICAN-AMERICAN > 60; GFR NON-AFRICAN AMERICAN > 60
[2018-01-18 13:43] LABS: INR 0.96 (0.93-1.08); PARTIAL THROMBOPLASTIN TIME 29.2 Seconds (25.1-36.5)
[2018-01-18 13:50] LABS: HEMOGLOBIN 6.8 g/dL (12.0-16.0)
--- NOTE | 2018-01-18 14:03 | RAD ---
HISTORY: medical clearance COMPARISON: 08/23/2017 FINDINGS: LUNGS: No active pulmonary disease. PLEURA: No significant pleural effusion identified, no pneumothorax apparent. CARDIOVASCULAR: Normal. OSSEOUS STRUCTURES: No significant abnormalities. VISUALIZED UPPER ABDOMEN: Normal. OTHER FINDINGS: None. IMPRESSION: No active disease.
--- NOTE | 2018-01-18 16:10 | CP.PCM.HP ---
<Indira Gabriel - Last Filed: 01/18/18 16:42> History of Present Illness - History of Present Illness History of Present Illness: Indira Gabriel, PGY1, H&P for Dr Vegas: CC: generalized fatigue/decreased energy 42 year old female with PMH including anemia due to menorrhagia (fibroid uterus ) requiring prbc transfusions (recent 07/2017 at [facility] [place]), SVT, LIANNA, presents for generalized fatigue and decreased energy for past couple of weeks. Pt's last LMP was 01/09/18, lasting 7 days, ended 2 days ago. Pt reports that she has heavy menses, requiring 8-10 pads per day. She started feeling lightheaded, dizzy, generalized weakness, sob with exertion. Pt states that she felt like she stumbling today at home d/t weakness, requiring her to come to ED. Denies falls, LOC. Pt states that she is scheduled to do an abdominal hysterectomy on at [facility] (could not do it earlier due to insurance issues). Reports occasional left sided chest pain, denies nausea, vomiting, abdominal pain, headache, diaphoresis, palpitations. Further, denies hematemesis, dysphagia, hemoptysis, cough, wheezing, diarrhea, hematochezia, melena. Reports constipation from her fibroid uterus and daily iron supplement. States that she only take ferrous sulfate once a day, instead of her prescribed three times a day. Prior EGD 07/2017 shows small hiatal hernia, no prior colonoscopy. In ED, pt afebrile and stable vitals. Hgb 6.8 (baseline 9.3). MCV 56.2. EKG shows NSR at 81 BPM, no ST/T wave changes. Given 1L NS bolus in ED. type and crossmatched and ordered to give 2 units prbcs. ROS obtained and neg, except as noted per HPI. PMD Alejandro Crooks (salcha) PMH: Anemia, menorrhagia, SVT, LIANNA, PTSD PSH: Breast reduction, right salpingectomy for ectopic Meds: gabapentin, iron sulfate, protonix FHx: MS, Lupus, RA in cousins, DM, esophageal CA, and colon CA in parents Soc: Tob 1/4 PPD for 20 years, EtOH 1-2 drinks weekly, Illicits drugs denies All: NKDA Present on Admission - Present on Admission Any Indicators Present on Admission: No History of DVT/PE: No History of Uncontrolled Diabetes: No Urinary Catheter: No Decubitus Ulcer Present: No Review of Systems - Review of Systems All systems: reviewed and no additional remarkable complaints except Review of Systems: as per hpi Past Patient History - Infectious Disease Hx of Infectious Diseases: None - Tetanus Immunizations Tetanus Immunization: Unknown - Past Social History Smoking Status: Light Smoker < 10 Cigarettes Daily - CARDIAC Hx Cardiac Disorders: Yes Hx Cardia Arrhythmia: Yes (SVT) - PULMONARY Hx Respiratory Disorders: No - NEUROLOGICAL Hx Neurological Disorder: No - HEENT Hx HEENT Problems: No - RENAL Hx Chronic Kidney Disease: No - ENDOCRINE/METABOLIC Hx Endocrine Disorders: No Hx Diabetes Mellitus Type 2: (family Hx: Maternal side) - HEMATOLOGICAL/ONCOLOGICAL Hx Blood Transfusions: Yes (last one week of 08/14/2017) Hx Blood Transfusion Reaction: No - INTEGUMENTARY Hx Dermatological Problems: No - MUSCULOSKELETAL/RHEUMATOLOGICAL Hx Musculoskeletal Disorders: No - GASTROINTESTINAL Hx Gastrointestinal Disorders: No - GENITOURINARY/GYNECOLOGICAL Hx Genitourinary Disorders: No - PSYCHIATRIC Hx Emotional Abuse: No Hx Physical Abuse: No Hx Substance Use: No - SURGICAL HISTORY Hx Hysterectomy: No (piece of uterus, right fallopian tube) Other/Comment: breast reduction. 2 C-sections - ANESTHESIA Hx Anesthesia Reactions: No Hx Malignant Hyperthermia: No Meds Allergies/Adverse Reactions: Allergies Allergy/AdvReac Type Severity Reaction Status Date / Time No Known Allergies Allergy Verified 08/23/17 10:48 Physical Exam - Constitutional Appears: No Acute Distress - Head Exam Head Exam: ATRAUMATIC, NORMOCEPHALIC - Eye Exam Eye Exam: EOMI, PERRL. absent: Conjunctival injection, Nystagmus, Scleral icterus Pupil Exam: NORMAL ACCOMODATION, PERRL. absent: Fixed, Irregular, Mydriatic, Unequal Additional comments: + conjunctival pallor bilaterally - ENT Exam ENT Exam: Mucous Membranes Moist - Neck Exam Neck exam: Positive for: Full Rom - Respiratory Exam Respiratory Exam: Clear to Auscultation Bilateral, NORMAL BREATHING PATTERN. absent: Accessory Muscle Use, Decreased Breath Sounds, Rales, Rhonchi, Wheezes, Respiratory Distress, Stridor - Cardiovascular Exam Cardiovascular Exam: RRR, +S1, +S2. absent: Systolic Murmur - GI/Abdominal Exam GI & Abdominal Exam: Normal Bowel Sounds, Soft. absent: Diminished Bowel Sounds , Distended, Firm, Guarding, Organomegaly, Pulsatile Mass, Rebound, Rigid, Tenderness - Extremities Exam Extremities exam: Positive for: normal inspection. Negative for: calf tenderness, pedal edema - Back Exam Back exam: NORMAL INSPECTION. absent: CVA tenderness (L), CVA tenderness (R) - Neurological Exam Neurological exam: Alert, CN II-XII Intact, Oriented x3, Reflexes Normal - Psychiatric Exam Psychiatric exam: Normal Affect, Normal Mood - Skin Skin Exam: Dry, Normal Color, Warm Results - Vital Signs Recent Vital Signs: Last Vital Signs Temp 98.7 F 01/18/18 12:39 Pulse 94 H 01/18/18 12:39 Resp 18 01/18/18 12:39 BP 121/75 01/18/18 12:39 Pulse Ox 100 01/18/18 12:39 - Labs Result Diagrams: 01/18/18 13:10 01/18/18 13:10 Assessment & Plan - Assessment and Plan (Free Text) Assessment: 42 year old female with PMH anemia (2/2 menorrhagia), fibroid uterus, SVT, LIANNA, GERD, presents for generalized fatigue/weakness, occasional chest pain: Chest pain, r/o ACS: - EKG: NSR @ 81 BPM, no ST elevation or depression, no T wave inversion. - Chest xray show no active disease - trops x 3 - lipid panel/hgb A1C - remote tele monitoring Symptomatic anemia: likely Fe def anemia 2/2 menorrhagia (fibroid uterus - Hgb 6.8 on admission. MCV 56.2 - microcytic. - Hemodynamically stable at this time, no current active bleeding - F/u Iron studies. Previous studies in 07/2017 shows fe def anemia. - Type and cross ordered with 2U PRBC transfusion ordered - Transvaginal Ultrasound 07/2017 showed enlarged uterus with multiple myomata and cyst on right ovary. - Fall precautions - C/w home Ferrous sulfate 325 mg PO tid and colace bid. Added Miralax. - Recheck CBC in AM, after transfusions - Consider IV iron if hgb continues to be low after transfusion Hx of cervical radiculopathy: - hold home gabapentin in setting of dizziness. Hx of SVT: - EKG in ER shows NSR with no tachycardia. Remote tele. - Continue to monitor GI/DVT Ppx: protonix, SCDs Patient seen, discussed, and reviewed with attending, Dr Vegas. - Date & Time Date: 01/18/18 Time: 16:40 <Lisandro Vegas - Last Filed: 01/18/18 16:56> Results - Vital Signs Recent Vital Signs: Last Vital Signs Temp 98.2 F 01/18/18 16:36 Pulse 87 01/18/18 16:36 Resp 18 01/18/18 16:36 BP 133/73 01/18/18 16:36 Pulse Ox 100 01/18/18 16:36 - Labs Result Diagrams: 01/18/18 13:10 01/18/18 13:10 Attending/Attestation - Attestation I have personally seen and examined this patient.: Yes I have fully participated in the care of the patient.: Yes I have reviewed all pertinent clinical information: Yes Notes (Text): 01/18/18 16:49 42 year old female with past medical history of anemia secondary to fibroid uterus and menorrhagia who presents with generalized weakness and fatigue with intermittent chest pain and shortness of breath. Symptoms likely secondary to symptomatic anemia. Hemoglobin is 6.8. Will transfuse 2 units and repeat labs in AM. Patient states she has scheduled outpatient gynecology appointment for hysterectomy. CXR was negative. Will obtain serial cardiac enzymes. Lisandro Vegas MD Hospitalist.
[2018-01-18 16:41] LABS: HDL CHOLESTEROL 48 mg/dL (29-60)
[2018-01-18 16:51] LABS: LDL CHOLESTEROL 46 mg/dL (0-129)
[2018-01-18 16:52] LABS: TROPONIN I < 0.01 ng/mL
[2018-01-18 17:36] LABS: IRON 16 ug/dL (45-180)
[2018-01-18 17:46] LABS: % IRON SATURATION 4 % (20-55); TOTAL IRON BINDING CAPACITY 392 ug/dL (265-497)
--- NOTE | 2018-01-18 21:15 | CARD ---
APPROVED REPORT EKG Measurement Heart [id number] MD [id number] <Conclusion> Poor data quality, interpretation may be adversely affected Normal sinus rhythm Normal ECG
[2018-01-19 02:23] VITALS: BP 108/68; RESP 20; TEMP 98.2
[2018-01-19 04:33] LABS: BASO # 0.03 K/mm3 (0.0-2.0); BASO % 0.3 % (0.0-3.0); EOS # 0.2 (0.0-0.7); EOS % 2.2 % (1.5-5.0); GRAN # 4.98 (1.4-6.5); GRAN % 57.3 % (50.0-68.0); HEMOGLOBIN 8.5 g/dL (12.0-16.0); LYMPH # 2.7 (1.2-3.4); LYMPH % 31.2 % (22.0-35.0); MEAN CELL VOLUME 59.7 fl (80.0-105.0); MEAN CORPUSCULAR HEMOGLOBIN 17.8 pg (25.0-35.0); MEAN CORPUSCULAR HGB CONC 29.8 g/dl (31.0-37.0); MONO # 0.8 (0.1-0.6); PLATELET COUNT 155 10^3/uL (120.0-450.0); RBC 4.77 10^6/uL (3.5-6.1); RED CELL DISTRIBUTION WIDTH 25.2 % (11.5-14.5); WHITE BLOOD COUNT 8.7 10^3/ul (4.5-11.0)
[2018-01-19 04:53] LABS: TROPONIN I < 0.01 ng/mL
[2018-01-19 05:05] LABS: ALB/GLOB RATIO 1.2 (1.1-1.8); ALBUMIN 3.4 g/dL (3.0-4.8); ALT/SGPT 13 U/L (7-56); AST/SGOT 15 U/L (14-36); BLOOD UREA NITROGEN 9 mg/dL (7-21); CALCIUM 9.2 mg/dL (8.4-10.5); GFR AFRICAN-AMERICAN > 60; GFR NON-AFRICAN AMERICAN > 60
[2018-01-19 08:18] VITALS: PULSE 77
[2018-01-19] MEDS: POLYETHYLENE GLYCOL 3350 17 GM/Dose PACKET PO SCH ×2 (10:10→11:40)
[2018-01-19 12:53] LABS: FERRITIN 3.9 ng/mL
--- NOTE | 2018-01-19 13:28 | CP.PCM.DIS ---
<Indira Gabriel - Last Filed: 01/19/18 15:22> Provider - Provider Date of Admission: 01/18/18 15:02 Attending physician: Lisandro Vegas MD Time Spent in preparation of Discharge (in minutes): 35 Diagnosis - Discharge Diagnosis (1) Symptomatic anemia Status: Acute Priority: Medium Hospital Course - Lab Results Lab Results: Most Recent Lab Values WBC 8.7 10^3/ul (4.5-11.0) 01/19/18 04:15 RBC 4.77 10^6/uL (3.5-6.1) 01/19/18 04:15 Hgb 8.5 g/dL (12.0-16.0) L 01/19/18 04:15 Hct 28.5 % (36.0-48.0) L 01/19/18 04:15 MCV 59.7 fl (80.0-105.0) L D 01/19/18 04:15 MCH 17.8 pg (25.0-35.0) L 01/19/18 04:15 MCHC 29.8 g/dl (31.0-37.0) L 01/19/18 04:15 RDW 25.2 % (11.5-14.5) H 01/19/18 04:15 Plt Count 155 10^3/uL (120.0-450.0) 01/19/18 04:15 Gran % 57.3 % (50.0-68.0) 01/19/18 04:15 Lymph % (Auto) 31.2 % (22.0-35.0) 01/19/18 04:15 [place] % (Auto) 9.0 % (1.0-6.0) H 01/19/18 04:15 Eos % (Auto) 2.2 % (1.5-5.0) 01/19/18 04:15 Baso % (Auto) 0.3 % (0.0-3.0) 01/19/18 04:15 Gran # 4.98 (1.4-6.5) 01/19/18 04:15 Lymph # (Auto) 2.7 (1.2-3.4) 01/19/18 04:15 [place] # (Auto) 0.8 (0.1-0.6) H 01/19/18 04:15 Eos # (Auto) 0.2 (0.0-0.7) 01/19/18 04:15 Baso # (Auto) 0.03 K/mm3 (0.0-2.0) 01/19/18 04:15 PT 11.0 SECONDS (9.4-12.5) 01/18/18 13:10 INR 0.96 (0.93-1.08) 01/18/18 13:10 APTT 29.2 Seconds (25.1-36.5) 01/18/18 13:10 Sodium 141 mmol/L (132-148) 01/19/18 04:15 Potassium 3.9 mmol/L (3.6-5.0) 01/19/18 04:15 Chloride 109 mmol/L (98-107) H 01/19/18 04:15 Carbon Dioxide 24 mmol/L (21-33) 01/19/18 04:15 Anion Gap 11 (10-20) 01/19/18 04:15 BUN 9 mg/dL (7-21) 01/19/18 04:15 Creatinine 0.6 mg/dl (0.7-1.2) L 01/19/18 04:15 Est GFR ( Amer) > 60 01/19/18 04:15 Est GFR (Non-Af Amer) > 60 01/19/18 04:15 POC Glucose (mg/dL) 87 mg/dL (65-110) 01/18/18 12:55 Random Glucose 83 mg/dL (70-110) 01/19/18 04:15 Hemoglobin A1c 5.3 % (4.2-6.5) 01/18/18 13:10 Calcium 9.2 mg/dL (8.4-10.5) 01/19/18 04:15 Iron 16 ug/dL (45-180) L 01/18/18 13:10 TIBC 392 ug/dL (265-497) 01/18/18 13:10 % Saturation 4 % (20-55) L 01/18/18 13:10 Ferritin 3.9 ng/mL 01/18/18 13:10 Total Bilirubin 0.5 mg/dL (0.2-1.3) 01/19/18 04:15 AST 15 U/L (14-36) 01/19/18 04:15 ALT 13 U/L (7-56) 01/19/18 04:15 Alkaline Phosphatase 37 U/L (38-126) L 01/19/18 04:15 Troponin I < 0.01 ng/mL 01/19/18 04:15 Total Protein 6.3 g/dL (5.8-8.3) 01/19/18 04:15 Albumin 3.4 g/dL (3.0-4.8) 01/19/18 04:15 Globulin 2.9 gm/dL 01/19/18 04:15 Albumin/Globulin Ratio 1.2 (1.1-1.8) 01/19/18 04:15 Triglycerides 64 mg/dL (35-160) 01/18/18 13:10 Cholesterol 108 mg/dL (130-200) L 01/18/18 13:10 LDL Cholesterol Direct 46 mg/dL (0-129) 01/18/18 13:10 HDL Cholesterol 48 mg/dL (29-60) 01/18/18 13:10 Vitamin B12 261 pg/mL (239-931) 01/18/18 13:10 Beta HCG, Quant < 2.39 mIU/mL (0-6.15) 01/18/18 13:10 Urine HCG, Qual Negative (NEGATIVE) 01/19/18 01:31 Blood Type A POSITIVE 01/18/18 14:00 Antibody Screen Negative 01/18/18 14:00 Crossmatch See Detail 01/18/18 14:00 BBK History Checked Patient has bt 01/18/18 14:00 - Hospital Course Hospital Course: 42 year old female with PMH including anemia due to menorrhagia (fibroid uterus ) requiring prbc transfusions (recent 07/2017 at [facility] [place] SVT, LIANNA, presents for generalized fatigue and decreased energy for past couple of weeks. Pt's last LMP was 01/09/18, lasting 7 days, ended 2 days ago. Pt reports that she has heavy menses, requiring 8-10 pads per day. Pt also complained of occasional chest pain. Pt's hgb found to be 6.8 (baseline 9.3), MVC 59.7. Troponins negative x3, EKG showed NSR with no ST/T wave changes. Pt's iron studies showed iron deficiency anemia. Pt transfused 2 units prbcs, and given venofer 200 mg IV x1. Post transfusion Hgb 8.5. Pt ambulating well without sob, pt reports improvement in her symptoms post treatment. Pt instructed to take iron tablets 3 times daily with colace and as needed miralax to avoid constipation. Pt told to f/u with Ob-gynecology teacher for hysterectomy and PMD. Pt understands and agrees to comply with treatment. Discharge Exam - Head Exam Head Exam: ATRAUMATIC, NORMOCEPHALIC - Eye Exam Eye Exam: EOMI, PERRL. absent: Conjunctival injection, Scleral icterus Pupil Exam: NORMAL ACCOMODATION, PERRL. absent: Fixed, Irregular, Miosis, Unequal - ENT Exam ENT Exam: Mucous Membranes Moist - Neck Exam Neck exam: Full Rom - Respiratory Exam Respiratory Exam: Clear to PA & Lateral, NORMAL BREATHING PATTERN. absent: Accessory Muscle Use, Chest Wall Tenderness, Rales, Rhonchi, Wheezes, Respiratory Distress, Stridor - Cardiovascular Exam Cardiovascular Exam: RRR, +S1, +S2. absent: Systolic Murmur - GI/Abdominal Exam GI & Abdominal Exam: Normal Bowel Sounds, Soft. absent: Distended, Mass, Tenderness - Extremities Exam Extremities exam: normal inspection - Back Exam Back exam: absent: CVA tenderness (L), CVA tenderness (R) - Neurological Exam Neurological exam: Alert, Oriented x3 - Psychiatric Exam Psychiatric exam: Normal Affect, Normal Mood - Skin Skin Exam: Dry, Normal Color, Warm Discharge Plan - Discharge Medications Prescriptions: Docusate [Colace] 100 mg PO BID 30 Days cap Ferrous Sulfate [Feosol] 324 mg PO TID 30 Days ect Nicotine [Nicotine Patch] 1 each TD DAILY 30 Days patch.[id number] Polyethylene Glycol 3350 [Miralax] 17 gm PO DAILY 30 Days packet - Follow Up Plan Condition: STABLE Disposition: HOME/ ROUTINE Instructions: Normocytic Normochromic Anemia (DC) Additional Instructions: - take iron 3 time a day, Take colace for constipation (2 times daily). You can take OTC Miralax additionally. - F/u with obgyn nurse for hysterectomy on 02/25/18. - F/u with PMD in 1 week. - Return to ER for any concerns. <Melody Alfonso - Last Filed: 01/19/18 16:05> Provider - Provider Date of Admission: 01/18/18 15:02 Attending physician: Lisandro Vegas MD [facility] Course - Lab Results Lab Results: Most Recent Lab Values WBC 8.7 10^3/ul (4.5-11.0) 01/19/18 04:15 RBC 4.77 10^6/uL (3.5-6.1) 01/19/18 04:15 Hgb 8.5 g/dL (12.0-16.0) L 01/19/18 04:15 Hct 28.5 % (36.0-48.0) L 01/19/18 04:15 MCV 59.7 fl (80.0-105.0) L D 01/19/18 04:15 MCH 17.8 pg (25.0-35.0) L 01/19/18 04:15 MCHC 29.8 g/dl (31.0-37.0) L 01/19/18 04:15 RDW 25.2 % (11.5-14.5) H 01/19/18 04:15 Plt Count 155 10^3/uL (120.0-450.0) 01/19/18 04:15 Gran % 57.3 % (50.0-68.0) 01/19/18 04:15 Lymph % (Auto) 31.2 % (22.0-35.0) 01/19/18 04:15 [place] % (Auto) 9.0 % (1.0-6.0) H 01/19/18 04:15 Eos % (Auto) 2.2 % (1.5-5.0) 01/19/18 04:15 Baso % (Auto) 0.3 % (0.0-3.0) 01/19/18 04:15 Gran # 4.98 (1.4-6.5) 01/19/18 04:15 Lymph # (Auto) 2.7 (1.2-3.4) 01/19/18 04:15 [place] # (Auto) 0.8 (0.1-0.6) H 01/19/18 04:15 Eos # (Auto) 0.2 (0.0-0.7) 01/19/18 04:15 Baso # (Auto) 0.03 K/mm3 (0.0-2.0) 01/19/18 04:15 PT 11.0 SECONDS (9.4-12.5) 01/18/18 13:10 INR 0.96 (0.93-1.08) 01/18/18 13:10 APTT 29.2 Seconds (25.1-36.5) 01/18/18 13:10 Sodium 141 mmol/L (132-148) 01/19/18 04:15 Potassium 3.9 mmol/L (3.6-5.0) 01/19/18 04:15 Chloride 109 mmol/L (98-107) H 01/19/18 04:15 Carbon Dioxide 24 mmol/L (21-33) 01/19/18 04:15 Anion Gap 11 (10-20) 01/19/18 04:15 BUN 9 mg/dL (7-21) 01/19/18 04:15 Creatinine 0.6 mg/dl (0.7-1.2) L 01/19/18 04:15 Est GFR ( Amer) > 60 01/19/18 04:15 Est GFR (Non-Af Amer) > 60 01/19/18 04:15 POC Glucose (mg/dL) 87 mg/dL (65-110) 01/18/18 12:55 Random Glucose 83 mg/dL (70-110) 01/19/18 04:15 Hemoglobin A1c 5.3 % (4.2-6.5) 01/18/18 13:10 Calcium 9.2 mg/dL (8.4-10.5) 01/19/18 04:15 Iron 16 ug/dL (45-180) L 01/18/18 13:10 TIBC 392 ug/dL (265-497) 01/18/18 13:10 % Saturation 4 % (20-55) L 01/18/18 13:10 Ferritin 3.9 ng/mL 01/18/18 13:10 Total Bilirubin 0.5 mg/dL (0.2-1.3) 01/19/18 04:15 AST 15 U/L (14-36) 01/19/18 04:15 ALT 13 U/L (7-56) 01/19/18 04:15 Alkaline Phosphatase 37 U/L (38-126) L 01/19/18 04:15 Troponin I < 0.01 ng/mL 01/19/18 04:15 Total Protein 6.3 g/dL (5.8-8.3) 01/19/18 04:15 Albumin 3.4 g/dL (3.0-4.8) 01/19/18 04:15 Globulin 2.9 gm/dL 01/19/18 04:15 Albumin/Globulin Ratio 1.2 (1.1-1.8) 01/19/18 04:15 Triglycerides 64 mg/dL (35-160) 01/18/18 13:10 Cholesterol 108 mg/dL (130-200) L 01/18/18 13:10 LDL Cholesterol Direct 46 mg/dL (0-129) 01/18/18 13:10 HDL Cholesterol 48 mg/dL (29-60) 01/18/18 13:10 Vitamin B12 261 pg/mL (239-931) 01/18/18 13:10 Folate 5.6 ng/mL 01/18/18 13:10 Beta HCG, Quant < 2.39 mIU/mL (0-6.15) 01/18/18 13:10 Urine HCG, Qual Negative (NEGATIVE) 01/19/18 01:31 Blood Type A POSITIVE 01/18/18 14:00 Antibody Screen Negative 01/18/18 14:00 Crossmatch See Detail 01/18/18 14:00 BBK History Checked Patient has bt 01/18/18 14:00 Attending/Attestation - Attestation I have personally seen and examined this patient.: Yes I have fully participated in the care of the patient.: Yes I have reviewed all pertinent clinical information, including history, physical exam and plan: Yes Notes (Text): 01/19/18 16:01 Patient was seen and examined with electromedical equipment technician. Agreed with assessment and plan. 42 yrs old female was admitted with symptomatic anemia (Iron deficiency due to fibroid uterus/mennorhagia ), improved after 2 units of PRBC. Patient is scheduled for hysterectomy next month.She is not compliance with oral Iron.This was discussed in detail with her . She was given IV Venofer prior to discharge. Management plan was discussed in detail with patient. Education was provided.
[2018-01-19 14:03] LABS: FOLATE 5.6 ng/mL
[2018-01-20] MEDS ORDERED: Pantoprazole 40 mg EC Tab PO SCH (07:30)
== END 2018-01-19 13:34 | disposition home or self-care (01) ==
LOC: ED 12:23 → ERH 15:02 → 3RSO 23:41
PROVIDERS: ADMIT Internal Medicine; ATTEND Internal Medicine
DX: D50.0 Iron deficiency anemia secondary to blood loss (chronic) (principal); N92.0 Excessive and frequent menstruation with regular cycle; D25.9 Leiomyoma of uterus, unspecified; F43.10 Post-traumatic stress disorder, unspecified; K21.9 Gastro-esophageal reflux disease without esophagitis; K59.00 Constipation, unspecified; F17.210 Nicotine dependence, cigarettes, uncomplicated; R40.2412 Glasgow coma scale score 13-15, at arrival to emergency department
CPT/HCPCS: 36415; 36430; 71045; 80053; 80061; 82607; 82728; 82746; 82948; 83036; 83540; 83550; 84484; 84702; 84703; 85025; 85610; 85730; 86850; 86900; 86920; 93005; 99285; C9113; G0378; J1756; J7040; P9016